=== PATIENT | female | born 1940 | race Caucasian/White ===

== ENCOUNTER 2018-08-10 07:35 | Emergency (ER) | payer OTHER ==
[2018-08-10] MEDS ORDERED: TRAMADOL HCL 50 MG TAB ONE (08:20)
--- NOTE | 2018-08-10 08:51 | RAD REPORT ---
EXAM DESCRIPTION: RAD - Elbow Right 3 View - 08/10/2018 8:42 am CLINICAL HISTORY: fall;Pain COMPARISON: No comparisons FINDINGS: Acute fracture of the radial head and neck is seen. Anterior and posterior fat pad elevati on is present. No dislocation is evident.
[2018-08-10] MEDS ORDERED: MORPHINE 4 MG/ML SYR ONE (08:58)
[2018-08-10] MEDS ORDERED: ONDANSETRON 4 MG (ODT) TAB ONE (08:59)
--- NOTE | 2018-08-10 09:12 | ER ---
Nurse's Notes [facility] Name: Estelle Zeng Age: 78 yrs Sex: Female : 1940 Arrival Date: 08/10/2018 Time: 07:36 Bed 7 Private MD: Diagnosis: Right Radial head and neck fracture Presentation: 08/10 07:44 Presenting complaint: EMS states: Pt tripped and fell on right elbow, denies hitting jl7 head, denies LOC. Care prior to arrival: Splint applied. Mechanism of Injury: Fall from standing position. Trauma event details: Injury occurred in the [facility], Injury occurred: at home. Injury occurred: August 10, 2018. 07:44 Acuity: CRISTINE 4 jl7 07:44 Method Of Arrival: EMS: [facility] jl7 07:52 Transition of care: patient was not received from another setting of care. Onset of jl7 symptoms was August 10, 2018. Risk Assessment: Do you want to hurt yourself or someone else? Patient reports no desire to harm self or others. Initial Sepsis Screen: Does the patient meet any 2 criteria? No. Patient's initial sepsis screen is negative. Does the patient have a suspected source of infection? No. Patient's initial sepsis screen is negative. Triage Assessment: 07:59 General: Appears in no apparent distress. uncomfortable, Behavior is calm, cooperative, jl7 appropriate for age. Pain: Complains of pain in right elbow Pain currently is 8 out of 10 on a pain scale. EENT: No signs and/or symptoms were reported regarding the EENT system. Neuro: Level of Consciousness is awake, alert, obeys commands, Oriented to person, place, time, situation. Cardiovascular: Heart tones present Patient's skin is warm and dry. Respiratory: Airway is patent Respiratory effort is even, unlabored, Respiratory pattern is regular, symmetrical, Breath sounds are clear bilaterally. Derm: Skin is pink, warm \T\ dry. Musculoskeletal: Range of motion: limited in right elbow. Trauma Activation: Not Applicable Physician: ED Physician; Name: ; Notified At: ; Arrived At: Physician: General Surgeon; Name: ; Notified At: ; Arrived At: Physician: Radiology; Name: ; Notified At: ; Arrived At: Physician: Respiratory; Name: ; Notified At: ; Arrived At: Physician: Lab; Name: ; Notified At: ; Arrived At: Historical: - Allergies: 07:59 Codeine; jl7 07:59 Hydrocodone-Acetaminophen; 7 07:59 PROPOXYPHENE; jl7 07:59 Meperidine; 7 07:59 Demerol; jl7 07:59 Darvon; jl7 - Home Meds: 07:59 Simvastatin Oral [Active]; anastrozole 1 mg oral tab 1 tab once daily [Active]; jl7 - PMHx: 07:59 Breast Cancer; Hyperlipidemia; jl7 - PSHx: 07:59 Mastectomy, Left; Mastectomy, Right; jl7 - Immunization history: Last tetanus immunization: unknown. - Social history:: Smoking status: unknown. - Ebola Screening: : No symptoms or risks identified at this time. Screenin:44 Abuse screen: Denies threats or abuse. Denies injuries from another. Tuberculosis jl7 screening: No symptoms or risk factors identified. Primary Survey: :44 NO uncontrolled hemorrhage observed. A: Airway: patent. Breathing/Chest: Respiratory jl7 pattern: regular, Respiratory effort: spontaneous, unlabored, Breath sounds: clear, bilaterally. Chest inspection: symmetrical rise and fall of the chest. Circulation: Heart tones present. Pulses: palpable right radial artery and left radial artery. Skin color: pink, Skin temperature: warm. Disability Alert. Exposure/Environment: There is no evidence of uncontrolled external bleeding. Obvious injury(ies) are noted at this time: right elbow noted with minor swelling and bruising A warming method has been applied: A warm blanket has been provided to the patient. 08:00 Reassessment Breathing/Chest Respiratory pattern Regular Respiratory effort Spontaneous jl7 Unlabored Chest inspection Symmetrical. Assessment: 08:00 General: See triage assessment. jl7 09:05 Reassessment: pt assisted to bedside commode, placed back in bed, family at bedside, pt iw crying, c/o increasing pain, ELYSIA Valencia notified, new orders given, pt medicated with morphine IM. 09:15 Reassessment: Pt will be discharged once splint is applied. jl7 Vital Signs: 07:44 BP 206 / 117; Pulse 75; Resp 16 S; Temp 98.6(O); Pulse Ox 100% on R/A; Weight 83.46 kg; jl7 Pain 8/10; 08:30 BP 203 / 102; Pulse 80; Resp 16 S; Pulse Ox 100% on R/A; jl7 09:30 BP 200 / 84; Pulse 78; Resp 16 S; Pulse Ox 100% on R/A; jl7 [place] Coma Score: 07:44 Eye Response: spontaneous(4). Verbal Response: oriented(5). Motor Response: obeys jl7 commands(6). Total: 15. Trauma Score (Adult): 07:44 Eye Response: spontaneous(1); Verbal Response: oriented(1); Motor Response: obeys jl7 commands(2); Systolic BP: > 89 mm Hg(4); Respiratory Rate: 10 to 29 per min(4); [place] Score: 15; Trauma Score: 12 ED Course: 07:36 Patient arrived in ED. hj 07:36 Erik Lopes PA is PHCP. jr8 07:36 Av Chaudhary MD is Attending Physician. jr8 07:44 Richard Foster, DORA is Primary Nurse. jl7 07:44 Patient has correct armband on for positive identification. Bed in low position. Call jl7 light in reach. Side rails up X2. 07:44 Patient maintains SpO2 saturation greater than 95% on room air. Thermoregulation: warm jl7 blanket given to patient. 07:47 Triage completed. jl7 08:03 Arm band placed on right wrist. jl7 08:39 X-ray completed. Portable x-ray completed in exam room. Patient tolerated procedure jb2 well. 08:43 XRAY Elbow RIGHT 3 view In Process Unspecified. EDMS 09:10 Emre Jordan MD is Referral Physician. jr8 09:42 No provider procedures requiring assistance completed. Patient did not have IV access jl7 during this emergency room visit. 09:50 Orthoglass splint: posterior long arm splint applied to the right arm. Volar splint kj1 applied on radial pulse present and within normal limits before and after application of splint. capillary refill was two seconds before and after application. Administered Medications: 08:11 Drug: traMADol 50 mg Route: PO; jl7 09:00 Follow up: Response: No adverse reaction; Pain is unchanged, physician notified jl7 08:53 Drug: Zofran 4 mg Route: PO; iw 09:39 Follow up: Response: No adverse reaction jl7 09:05 Drug: morphine 4 mg Route: IM; Site: left deltoid; iw 09:39 Follow up: Response: No adverse reaction; Pain is decreased jl7 Intake: 09:30 PO: 0ml; Total: 0ml. jl7 Output: 09:30 Urine: 0ml; Total: 0ml. jl7 Outcome: 09:10 Discharge ordered by . jrLonnie 09:42 Discharged to home ambulatory, via wheelchair. jl7 09:42 Condition: stable 09:42 Discharge instructions given to patient, family, Instructed on discharge instructions, follow up and referral plans. medication usage, Demonstrated understanding of instructions, follow-up care, medications, Prescriptions given X 2. 09:43 Patient left the ED. Signatures: Dispatcher [employer] EDMS Matt Haskins jb2 Maria Teresa Perry, DORA JOHN iw Erik Lopes PA PA jr8 Alex Fischer RN RN hj Leal, Jahala, RN RN jl7 Smiley Gregg kj1
--- NOTE | 2018-08-10 09:12 | EDPHYS ---
Physician Documentation [facility] Name: Estelle Zeng Age: 78 yrs Sex: Female : 1940 Arrival Date: 08/10/2018 Time: 07:36 Bed 7 Private MD: ED Physician Av Chaudhary HPI: 08/10 08:34 This 78 yrs old Female presents to ER via EMS with complaints of Fall Injury. jr8 08:34 Details of fall: The patient fell from an upright position, while standing. Onset: The jr8 symptoms/episode began/occurred acutely, this morning. Associated injuries: The patient sustained right elbow, ecchymosis, painful injury, swelling. Severity of symptoms: At their worst the symptoms were moderate, in the emergency department the symptoms are unchanged. The patient has not experienced similar symptoms in the past. The patient has not recently seen a physician. Patient stated that she accidently tripped on husbands gym bag. Fell to ground and hit right elbow. Denies hitting head or neck. Denies LOC. No other trauma complaints at this time . Historical: - Allergies: 07:59 Codeine; jl7 07:59 Hydrocodone-Acetaminophen; jl7 07:59 PROPOXYPHENE; jl7 07:59 Meperidine; jl7 07:59 Demerol; jl7 07:59 Darvon; jl7 - Home Meds: 07:59 Simvastatin Oral [Active]; anastrozole 1 mg oral tab 1 tab once daily [Active]; jl7 - PMHx: 07:59 Breast Cancer; Hyperlipidemia; jl7 - PSHx: 07:59 Mastectomy, Left; Mastectomy, Right; jl7 - Immunization history: Last tetanus immunization: unknown. - Social history:: Smoking status: unknown. - Ebola Screening: : No symptoms or risks identified at this time. ROS: 08:34 Eyes: Negative for injury, pain, redness, and discharge, ENT: Negative for injury, jr8 pain, and discharge, Neck: Negative for injury, pain, and swelling, Cardiovascular: Negative for chest pain, palpitations, and edema, Respiratory: Negative for shortness of breath, cough, wheezing, and pleuritic chest pain, Abdomen/GI: Negative for abdominal pain, nausea, vomiting, diarrhea, and constipation, Back: Negative for injury and pain, Skin: Negative for injury, rash, and discoloration, Neuro: Negative for headache, weakness, numbness, tingling, and seizure. 08:34 MS/extremity: Positive for ecchymosis, pain, swelling, tenderness, of the right elbow. Exam: 08:34 Eyes: Pupils equal round and reactive to light, extra-ocular motions intact. Lids and jr8 lashes normal. Conjunctiva and sclera are non-icteric and not injected. Cornea within normal limits. Periorbital areas with no swelling, redness, or edema. ENT: Nares patent. No nasal discharge, no septal abnormalities noted. Tympanic membranes are normal and external auditory canals are clear. Oropharynx with no redness, swelling, or masses, exudates, or evidence of obstruction, uvula midline. Mucous membranes moist. Neck: Trachea midline, no thyromegaly or masses palpated, and no cervical lymphadenopathy. Supple, full range of motion without nuchal rigidity, or vertebral point tenderness. No Meningismus. Cardiovascular: Regular rate and rhythm with a normal S1 and S2. No gallops, murmurs, or rubs. Normal PMI, no JVD. No pulse deficits. Respiratory: Lungs have equal breath sounds bilaterally, clear to auscultation and percussion. No rales, rhonchi or wheezes noted. No increased work of breathing, no retractions or nasal flaring. Abdomen/GI: Soft, non-tender, with normal bowel sounds. No distension or tympany. No guarding or rebound. No evidence of tenderness throughout. Back: No spinal tenderness. No costovertebral tenderness. Full range of motion. Skin: Warm, dry with normal turgor. Normal color with no rashes, no lesions, and no evidence of cellulitis. Neuro: Awake and alert, GCS 15, oriented to person, place, time, and situation. Cranial nerves II-XII grossly intact. Motor strength 5/5 in all extremities. Sensory grossly intact. Cerebellar exam normal. Normal gait. 08:34 Musculoskeletal/extremity: Extremities: grossly normal except: noted in the right elbow: Patient has mild swelling, bruising, and tenderness to lateral malleolus. Decreased ROM due to pain. No obvious deformity. Normal sensation with 2+ pulses present to right wrist. Cap refill < 2 seconds. Rest of extremities unremarkable . Vital Signs: 07:44 BP 206 / 117; Pulse 75; Resp 16 S; Temp 98.6(O); Pulse Ox 100% on R/A; Weight 83.46 kg; jl7 Pain 8/10; 08:30 BP 203 / 102; Pulse 80; Resp 16 S; Pulse Ox 100% on R/A; jl7 09:30 BP 200 / 84; Pulse 78; Resp 16 S; Pulse Ox 100% on R/A; jl7 [place] Coma Score: 07:44 Eye Response: spontaneous(4). Verbal Response: oriented(5). Motor Response: obeys jl7 commands(6). Total: 15. Trauma Score (Adult): 07:44 Eye Response: spontaneous(1); Verbal Response: oriented(1); Motor Response: obeys jl7 commands(2); Systolic BP: > 89 mm Hg(4); Respiratory Rate: 10 to 29 per min(4); [place] Score: 15; Trauma Score: 12 Procedures: 08:47 Splinting: Splint applied to right elbow using Orthoglass splint, applied by tech. jr8 nurse. Examined by me, post splint application: neurovascular intact, 2+ distal pulses palpable, brisk capillary refill noted, Patient tolerated well. MDM: 07:43 Patient medically screened. jr8 08:47 Data reviewed: vital signs, nurses notes, radiologic studies, plain films. Data jr8 interpreted: Pulse oximetry: on room air is 100 %. Interpretation: normal. Test interpretation: by ED physician or midlevel provider: plain radiologic studies, Radial Head fracture right elbow . Counseling: I had a detailed discussion with the patient and/or guardian regarding: the historical points, exam findings, and any diagnostic results supporting the discharge/admit diagnosis, radiology results, the need for outpatient follow up, a orthopedic surgeon, to return to the emergency department if symptoms worsen or persist or if there are any questions or concerns that arise at home. 08/10 07:43 Order name: XRAY Elbow RIGHT 3 view; Complete Time: 08:59 jr8 08/10 08:47 Order name: Posterior Elbow Splint; Complete Time: 09:39 jr8 Administered Medications: 08:11 Drug: traMADol 50 mg Route: PO; jl7 09:00 Follow up: Response: No adverse reaction; Pain is unchanged, physician notified jl7 08:53 Drug: Zofran 4 mg Route: PO; iw 09:39 Follow up: Response: No adverse reaction jl7 09:05 Drug: morphine 4 mg Route: IM; Site: left deltoid; 09:39 Follow up: Response: No adverse reaction; Pain is decreased jl7 Disposition: 11:30 Co-signature as Attending Physician, Av Chaudhary MD. rn Disposition: 08/10/18 09:10 Discharged to Home. Impression: Right Radial head and neck fracture . - Condition is Stable. - Discharge Instructions: Elbow Fracture Treated With ORIF. - Prescriptions for Tramadol 50 mg Oral Tablet - take 1 tablet by ORAL route every 8 hours as needed; 20 tablet. Zofran 4 mg Oral Tablet - take 1 tablet by ORAL route every 12 hours As needed; 20 tablet. - Medication Reconciliation Form, Thank You Letter, Antibiotic Education, Prescription Opioid Use form. - Follow up: Emre Jordan MD; When: 2 - 3 days; Reason: Recheck today's complaints, Continuance of care, Re-evaluation by your physician. - Problem is new. - Symptoms have improved. Signatures: Dispatcher [employer] EDMaria Teresa Mendoza RN RN iw Nieto, Roman, MD MD rn Roszak, Josh, PA PA jr8 Richard Foster RN RN jl7 Corrections: (The following items were deleted from the chart) 09:43 09:10 08/10/2018 09:10 Discharged to Home. Impression: Right Radial head and neck iw fracture . Condition is Stable. Forms are Medication Reconciliation Form, Thank You Letter, Antibiotic Education, Prescription Opioid Use. Follow up: Emre Jordan; When: 2 - 3 days; Reason: Recheck today's complaints, Continuance of care, Re-evaluation by your physician. Problem is new. Symptoms have improved. jr8
== END 2018-08-10 09:43 | disposition home or self-care (01) ==
LOC: ER 07:35
PROC: 2W38X1Z Immobilization of Right Upper Extremity using Splint (ICD-10-PCS; principal; 2018-08-10)
DX: S52.122A Displaced fracture of head of left radius, initial encounter for closed fracture (principal); S52.131A Displaced fracture of neck of right radius, initial encounter for closed fracture; W01.0XXA Fall on same level from slipping, tripping and stumbling without subsequent striking against object, initial encounter; E78.5 Hyperlipidemia, unspecified; C50.919 Malignant neoplasm of unspecified site of unspecified female breast; Z88.5 Allergy status to narcotic agent
CPT/HCPCS: 96372; 99284

== ENCOUNTER 2020-01-05 06:22 | Day surgery (SDC) | payer OTHER ==
--- OUTSIDE RECORDS SUMMARY | 2020-01-05 06:35 | XMS REPORT | Continuity of Care Document ---
:1940 Author Organization [facility] t Address [address] [place] [address] Dr. Feng [address] [place] [id number] Care Team Providers Name Role Phone Unavailable Unavailable Unavailable Problems This patient has no known problems. Allergies, Adverse Reactions, Alerts This patient has no known allergies or adverse reactions. Medications This patient has no known medications. Procedures This patient has no known procedures. Results This patient has no known results.
[2020-01-05] MEDS ORDERED: Ringers Lactate 1,000 ML IV ONE (06:59)
[2020-01-05] MEDS ORDERED: NA CHLORIDE 0.9% 1,000 ML ONE (07:09)
[2020-01-05] MEDS ORDERED: MIDAZOLAM HCL 2 MG/2 ML INJ ONE (07:14)
[2020-01-05] MEDS ORDERED: propofoL 200 MG/20 ML VIAL IV ONE ×2 (07:14→08:16)
[2020-01-05] MEDS ORDERED: FENTANYL CITR 100 MCG/2 ML ONE (07:14)
[2020-01-05] MEDS ORDERED: LIDOCAINE 2% MPF 5 ML VIAL ONE (07:15)
[2020-01-05] MEDS: LIDOCAINE 1% W/EPI 1:100,000 MDV 20 ML VIAL ONE ×2 (07:28→07:51)
[2020-01-05 08:42] VITALS: TEMP 98; O2SAT 100
[2020-01-05 08:43] VITALS: BP 130/64
--- NOTE | 2020-01-05 10:35 | OP ---
Date of Procedure: 01/05/2020 Surgeon: Carline Estrada MD Preoperative Diagnoses: History of breast cancer, thickened endometrium, the patient is on anastrozo le. Postoperative Diagnoses: History of breast cancer, thickened endometrium, the patient is on anastroz ole, polypoid endometrium, and cervical polyp. Procedures Performed: 1.Cervical polypectomy. 2.Hysteroscopy, dilation and curettage. Anesthesia: MAC plus paracervical block. Specimens: Endometrial curettings, cervical polyp. Complications: None. Drains: None. Condition: Stable. Findings: Uterine cavity empty. There were small intrauterine adhesions. Tiny polypoid endometrium appeared very atrophic. Both tubal ostia were well visualized as one spot near the left cornual end in the posterior wall that appeared to be slightly vascular and polypoid, but this was an extremely small lesion. She had a significant posterior wall defect, anterior wall -2, -3, -6. Genital hiatus 4-5 cm. Thick ness of the perineal body moderate. Length of the vaginal canal 7 cm and -2, 0, and -6. The patient had significant site-specific midline posterior wall defect that was making the genital h iatus larger than normal. Description Of Procedure: After informed consent was verified, the patient was taken back to OR, pankaj shelia in supine fashion on the operating table. MAC given. She was placed in a dorsal lithotomy posit ion. Speculum placed to expose the cervix. Prep x3 with Betadine was done. Anterior lip injected w ith 1% lidocaine mixed with 1:100,000 epinephrine, 10 cc here, and 4 and 8 o'clock positions 5 cc eac h. Diagnostic hysteroscopy was performed after the polyps of the cervix were removed. The findings are as dictated above. Slightly polypoid endometrium after the adhesions were taken down with the ti p of the scope. Slightly vascular area which is very few millimeters difficult to even sample. All the scope was removed, curettings were performed after dilating the cervix to 14-Kiswahili without any p roblems. The curettings were scant. The cervical polyps were placed in a separate specimen cup and the endometrial curettings in different cup. Hysteroscopy was performed at the end and the tiny poly poid lesions were removed, either with the process of hysteroscopy or with the curetting, but they we re not found in the hysteroscopic fluid, it was very difficult to remove these. The patient was recovered from anesthesia. Instrument, needle, and sponge counts were done and were correct at the end of the case. She was recovered and taken to PACU in a stable condition. She has a 1-week followup with me. CHLOE Voice ID: [id number] Report ID: [id number]
== END 2020-01-05 09:01 | disposition home or self-care (01) ==
LOC: OR 06:22
PROVIDERS: ATTEND Obstetrics & Gynecology
PROC: 0UB97ZX Excision of Uterus, Via Natural or Artificial Opening, Diagnostic (ICD-10-PCS; 2020-01-05)
PROC: 0UDB7ZX Extraction of Endometrium, Via Natural or Artificial Opening, Diagnostic (ICD-10-PCS; 2020-01-05)
PROC: 0UJD8ZZ Inspection of Uterus and Cervix, Via Natural or Artificial Opening Endoscopic (ICD-10-PCS; 2020-01-05)
PROC: 0UBC7ZX Excision of Cervix, Via Natural or Artificial Opening, Diagnostic (ICD-10-PCS; principal; 2020-01-05 07:30)
DX: N84.0 Polyp of corpus uteri (principal); N84.1 Polyp of cervix uteri; Z79.811 Long term (current) use of aromatase inhibitors; I10 Essential (primary) hypertension; Z20.828 Contact with and (suspected) exposure to other viral communicable diseases; Z79.899 Other long term (current) drug therapy; Z85.3 Personal history of malignant neoplasm of breast
CPT/HCPCS: 88305; 58558; 57500; U0002; J2704; J3010; J7120; J7030; J2250

== ENCOUNTER 2022-02-24 09:40 | Emergency (ER) | payer OTHER ==
--- OUTSIDE RECORDS SUMMARY | 2022-02-24 09:47 | XMS REPORT | Continuity of Care Document ---
:1940 Author Organization [facility] t Address [address] [place] [address] Care Team Providers Name Role Phone JAGDISH WALTER Primary Care Physician Unavailable Vaccine, [facility] Attending Clinician Unavailable Bismark Kramer DO Attending Clinician BISMARK KRAMER Attending Clinician Unavailable Nurse, Leonel Pob Immunization Attending Clinician Unavailable EUGENIO HELLER Attending Clinician Unavailable Payers Payer Name Policy Type Policy Number Effective Date Expiration Date S patrick [employer] MEDICARE ADV [id number] 2018 00:00:00 Problems Condition Condition Condition Status Onset Resolution Last Treating Co mments Source Name Details Category Date Date Treatment Clinician Date WALDEMAR WALDEMAR Diagnosis Active 2011-052012-04-28 [facility] oria Active 06-24 16:10:00 l 04/23/2012 00:00: Adrián nicolas 00 [facility] WALDEMAR WALDEMAR Diagnosis Active 2011-052012-06-29 [facility] oria -327.23 / -327.06-02 14:57:00 l [id number] 00:00: Jack Active 00 04/02/2012 [facility] MORBID MORBID Diagnosis Active 2011-052012-02-24 [place] morideepti OBESITY OBESITY 0- 10:34:00 l Active 00:00: Jack 02/10/2012 00 [facility] 327.23 327.23 Diagnosis Active 2011-12-12 M emoria Active 11-26 19:28:00 l 11/27/2011 00:00: Adrián nicolas 00 [facility] Acute Acute Problem Active 2012-03-02 Aniaor ia bronchitis bronchitis 03:03:45 l Active Jack Problem 03/02/2012 [facility] Bilateral Bilateral Problem Active 2012-03-02 Memoria cataracts cataracts 03:03:45 l Active [place] Problem 03/02/2012 [facility] Breast Breast Problem Active 2012-03-02 Wilbert olivier cancer cancer 03:03:45 l Active [place] Problem 03/02/2012 [facility] Diabetes Diabetes Problem Active 2012-03-02 Memoria mellitus mellitus 03:03:45 l Active [place] Problem 03/02/2012 [facility] HTN - HTN - Problem Active 2012-03-02 Wilbert olivier Hypertensi Hypertensi 03:03:45 l on on Active Jack Problem 03/02/2012 [facility] Hyperlipid Hyperlipi Problem Active 2012-03-02 Memoria emia demia 03:03:45 l Active [place] Problem 03/02/2012 [facility] Morbid Morbid Problem Active 2012-03-02 Wilbert olivier obesity obesity 03:03:45 l Active Jack Problem 03/02/2012 [facility] Sleep Sleep Problem Active 2012-03-02 Memor ia apnea apnea 03:03:45 l Active Jack Problem 03/02/2012 [facility] OBSTRUCTIV OBSTRUCTI Diagnosis Active 2012-06-29 Memoria E SLEEP VE SLEEP 14:57:00 l APNEA APNEA [place] Active [facility] ADMINISTRT Diagnosis Active 2012-02-24 Memoria VE ENCOUNT ADMINISTRT 10:34:00 l NOS VE ENCOUNT Adrián n NOS Active [facility] Allergies, Adverse Reactions, Alerts Allergy Allergy Status Severity Reaction(s) Onset Inactive Treating Comm ents Source Name Type Date Date Clinician PROPOXYP DRUG Active N/V Univers HENE HCL INGREDI 4-10 ity of 00:00: 00 Medical Branch MEPERIDI DRUG Active N/V Univers NE HCL INGREDI 4-10 ity of 00:00: 00 Medical Branch HYDROCOD DRUG Active Other-Cmnt Univ ers ONE INGREDI 4-10 ity of 00:00: 00 Medical [facility] Propoxyp Propensi Active Nausea Univer s hene Hcl ty to and/or 4-10 ity of adverse Vomiting 00:00: [place] reaction 00 Medical s [facility] Meperidi Propensi Active Nausea Univer s ne Hcl ty to and/or 4-10 ity of adverse Vomiting 00:00: [place] reaction [facility] Hydrocod Propensi Active Other - See Fast HR Univers one ty to comments 4-10 ity of adverse 00:00: [place] reaction [facility] propoxyp propoxyp Active Memori a hene hene l Jack Darvon Darvon Active Memoria liliane Santiago Demerol Demerol Active Memoria HCl HCl l Jack meperidi meperidi Active Memori a ne ne l Jack Social History Social Habit Start Date Stop Date Quantity Comments Source Tobacco use and 2018-08-11 2018-08-11 Smokeless tobacco Un iversity of exposure 00:00:00 00:00:00 non-user [facility] Sex Assigned At [birth year] Universit y of 00:00:00 00:00:00 [facility] Smoking Status Start Date Stop Date Source Never smoked tobacco [facility] Medications Ordered Filled Start Stop Current Ordering Indication Dosage Frequency Signature Comments Components Source Medication Medication Date Date Medication? Clinician (SIG) Name Name SIMVASTATIN Yes Take by Uni vers ORAL 4-10 mouth. ity of 15:11: [address] SIMVASTATIN Yes Take by Uni vers ORAL 4-10 mouth. ity of 15:11: [address] SIMVASTATIN Yes Take by Uni vers ORAL 4-10 mouth. ity of 15:11: [address] Lortab 500 2011-05 Yes Isiah 15 ml, PO, Memoria mg-7.5 0-25 Arturo Q4H, PRN, l mg/15 mL 14:04: 200 mLAdrián n oral elixir 38 for pain, Substituti on Allowed, Maintenanc e, ELIX ketorolac 2011-05 No Isiah 30 mg, 1 Me moria 30 mg/mL 0-24 Arturo mL, Route: l injectable 17:00: IV, Drug Her castillo solution 00 form: INJ, Q6H, Start date: 02/25/12 12:00:00, Duration: 4 day, Stop date: 02/29/12 6:00:00 Lovenox 2011-05 No Isiah 40 mg, 0.4 Me moria 0-24 Arturo mL, Route: l 15:00: SUB-Q, Jack 00 Drug form: INJ, [id number], Start date: 02/25/12 10:00:00, Duration: 30 day, Stop date: 03/25/12 22:00:00 naloxone 2011-05 No Isiah 0.2 mg, Wilbert olivier 0-24 Arturo 0.5 mL, l 14:53: Route: Jack 00 IVP, Drug form: INJ, Q5Min, PRN Narcotic Reversal, Start date: 02/25/12 9:53:00, Stop date: 03/26/12 8:52:00 morphine 2011-05 No Isiah IV, Start Me moria Sulfate 30 0-24 Arturo date: l mg 14:52: 02/25/12 [place] 00 9:52:00, 30 ml, 139.545 acetaminoph 2011-05 No Isiah 15 mL, Me moria en-hydrocod 0-24 Arturo Route: PO, l one 14:46: Drug Form: ELIX, Q4H, PRN Pain, Start date: 02/25/12 9:46:00, Duration: 30 day, Stop date: 03/26/12 9:45:00 Tylenol 2011-05 No Isiah 650 mg, Memor ia 0-24 Arturo 20.3 mL, l 14:46: Route: PO, Jack 00 Drug form: LIQ, Q4H, PRN Pain Score 1-3, Start date: 02/25/12 9:46:00, Duration: 30 day, Stop date: 03/26/12 9:45:00 heparin 2011-05 No Isiah 5,000 Memoria 0-24 Arturo unit, 1 l 03:00: mL, Route: [place] 00 SUB-Q, Drug form: INJ, ONCE, Start date: 02/24/12 22:00:00, Stop date: 02/24/12 22:00:00 Pepcid 2011-05 No Isiah 20 mg, 2 Memor ia 0-24 Arturo mL, Route: l 02:00: IVP, Drug form: INJ, Q12H, Start date: 02/24/12 21:00:00, Duration: 30 day, Stop date: 03/25/12 9:00:00 Reglan 2011-05 No Isiah 10 mg, 2 Memor ia 0-23 Arturo mL, Route: l 23:00: IV, Drug form: INJ, Q8H, Start date: 02/24/12 18:00:00, Duration: 30 day, Stop date: 03/25/12 10:00:00 cefazolin 2011-05 No Isiah 2 gm, 100 M emoria 0-23 Arturo mL, Route: l 21:00: IVPB, Drug form: INJ, Q8H, Start date: 02/24/12 16:00:00, Duration: 3 doses or times, Stop date: 02/25/12 8:00:00 Pepcid 2011-05 No Isiah 20 mg, Memoria 0-23 Arturo Route: IV, l 19:00: ONCE, Dosing Weight 139.545, kg, Start date: 02/24/12 14:00:00, Stop date: 02/24/12 14:00:00 insulin 2011-05 Sienna Joyce 15 unit, Wilbert olivier regular 0-23 Arturo 0.15 mL, l human 17:52: Route: Jack recombinant 00 SUB-Q, 100 Drug form: units/mL SOLN, injectable Sliding solution Scale, PRN Blood Glucose Results, Start date: 02/24/12 12:52:00, Duration: 30 day, Stop date: 03/25/12 11:51:00 insulin 2011-05 Sienna Joyce 10 unit, Wilbert oliveir regular 0-23 Arturo 0.1 mL, l human 17:51: Route: Jack recombinant 00 SUB-Q, 100 Drug form: units/mL SOLN, injectable Sliding solution Scale, PRN Blood Glucose Results, Start date: 02/24/12 12:51:00, Duration: 30 day, Stop date: 03/25/12 11:50:00 Tylenol 2011-05 No Isiah 650 mg, 1 Mem oria 0-23 Arturo supp, l 17:50: Route: FL, Drug form: SUPP, Q4H, PRN Temperatur e >100.5, Start date: 02/24/12 12:50:00, Duration: 30 day, Stop date: 03/25/12 12:49:00 Vasotec 2011-05 No Isiah 1.25 mg, 1 Me moria 0-23 Arturo mL, Route: l 17:49: IV, Drug form: INJ, Q6H, PRN Elevated BP, Start date: 02/24/12 12:49:00, Duration: 30 day, Stop date: 03/25/12 12:48:00 Phenergan 2011-05 No Isiah 25 mg, 1 Me moria 0-23 Arturo mL, Route: l 17:49: IM, Drug form: INJ, Q4H, PRN Nausea, Start date: 02/24/12 12:49:00, Duration: 30 day, Stop date: 03/25/12 12:48:00 Lactated 2011-05 No Isiah 1,000 mL, Me moria Ringers 0-23 Arturo Rate: 80 l Injection 17:48: ml/hr, Adrián n IV 1,000 mL 00 Infuse over: 12.5 hr, Route: IV, kg, Total Volume: 1,000, Start date: 02/24/12 12:48:00, Stop date: 03/25/12 12:47:00 Zofran 2011-05 No Isiah 4 mg, 2 Memori a 0-23 Arturo mL, Route: l 15:24: IVP, Drug form: INJ, Q8H, PRN Nausea & Vomiting, Start date: 02/24/12 10:24:00, Duration: 30 day, Stop date: 03/25/12 10:23:00 Benadryl 2011-05 No Isiah 12.5 mg, Mem oria 0-23 Arturo 0.25 mL, l 15:24: Route: IVP, Drug form: INJ, Q6H, PRN Itching, Start date: 02/24/12 10:24:00, Duration: 30 day, Stop date: 03/25/12 10:23:00 naloxone 2011-05 No Isiah 0.2 mg, Wilbert olivier 0-23 Arturo 0.5 mL, l 15:23: Route: IVP, Drug form: INJ, Q5Min, PRN Narcotic Reversal, Start date: 02/24/12 10:23:00, Duration: 30 day, Stop date: 03/25/12 9:22:00 morphine 2011-05 No Isiah IV, Start Me moria Sulfate 30 0-23 Arturo date: l mg 15:23: 02/24/12 Jack 00 10:23:00, Duration: 30, 30 ml, 139.545 ketorolac 2011-05 No Isiah 15 mg, 0.5 Memoria 30 mg/mL 0-23 Arturo mL, Route: l injectable 15:19: IV, Drug Her castillo solution 00 form: INJ, Q8H, PRN Breakthrou gh Pain, Start date: 02/24/12 10:19:00, Duration: 4 day, Stop date: 02/28/12 10:18:00 Peridex 2011-05 No Kevon 15 mL, Memori a 0.12% 0-23 Jens [place] Route: l topical 12:34: S&SPIT, Jack liquid 00 ONCE, Start date: 02/24/12 7:34:00, Stop date: 02/24/12 7:34:00 naloxone 2011-05 No Noel 0.04 mg, Mem oria 0-23 Chuan 0.1 mL, l 12:21: Route: Jack 00 IVP, Drug form: INJ, Q2MIN, Dosing Weight 139.545, kg, PRN Narcotic Reversal, Start date: 02/24/12 7:21:00, Duration: 8 doses or times, Stop date: Limited # of times ondansetron 2011-05 No Noel 4 mg, 2 M emoria 0-23 Chuan mL, Route: l 12:21: IVP, Drug [place] 00 form: INJ, ONCE, Dosing Weight 139.545, kg, PRN Nausea & Vomiting, Start date: 02/24/12 7:21:00 flumazenil 2011-05 No Noel 0.2 mg, 2 Memoria 0-23 Chuan mL, Route: l 12:21: IVP, Drug [place] 00 form: INJ, PRN, Dosing Weight 139.545, kg, PRN Benzodiaze pine Reversal, Initial dose, Start date: 02/24/12 7:21:00, Duration: 30 day, Stop date: 03/25/12 6:20:00 1/ NS 2011-05 No Kevon 1,000 mL, Wilbert olivier 1,000 mL 0-23 Jens [place] Rate: 40 l 11:25: ml/hr, Jack 00 Infuse over: 25 hr, Route: IV, kg, Total Volume: 1,000, Start date: 10/23/12 6:25:00, Duration: 30 day, Stop date: 03/25/12 6:24:00 cefazolin 2011-05 No Isiah 2 gm, 100 M emoria 0-23 Arturo mL, Route: l 05:00: IVPB, Drug Jack 00 form: INJ, ONCALL, Start date: 02/24/12 0:00:00, Duration: 1 doses or times Januvia 100 2011-05 No 100 mg, 1 M emoria mg oral 0-09 tab, PO, l tablet 16:41: Daily, 30 Adrián n 54 tab, Substituti on Allowed, TAB glimepiride 2011-05 No 1 mg, 1 Mem oria 1 mg oral 0-09 tab, PO, l tablet 16:41: BID, 30 Jack 27 tab, Substituti on Allowed, TAB Centrum 2011-05 Yes 1 tab, PO, Wilbert olivier Silver oral 0-09 Daily, 30 l tablet 16:41: tab, Jack 11 Substituti on Allowed, Maintenanc e, TAB MetroGel 1% 2011-05 Yes 1 appl, Mem oria topical gel 0-09 TOP, l 16:40: Daily, 45 Jack 23 gm, Substituti on Allowed, GEL Aspirin Low 2011-05 No 81 mg, 1 Me moria Dose 81 mg 0-09 tab, PO, l oral tablet 16:39: Daily, Leatha mcwilliams 52 Substituti on Allowed Metoprolol 2011-05 Yes 100 mg, 1 Me moria Tartrate 0-09 tab, PO, l 100 mg oral 16:39: BID, Adrián n tablet 39 Substituti on Allowed Actonel 150 2011-05 No 150 mg, 1 M emoria mg oral 0-09 tab, PO, l tablet 16:39: qMonth, 1 Adrián n 22 tab, Substituti on Allowed, TAB Hyzaar 100 2011-05 Yes 1 tab, PO, M emoria mg-25 mg 0-09 Daily, 30 l oral tablet 16:39: tab, Adrián n 06 Substituti on Allowed, Maintenanc e, TAB Zocor 40 mg 2011-05 No 40 mg, 1 Me moria oral tablet 0-09 tab, PO, l 16:38: Bedtime, Jack 53 30 tab, Substituti on Allowed, Maintenanc e Norvasc 2.5 2011-05 Yes 2.5 mg, 1 M emoria mg oral 0-09 tab, PO, l tablet 16:38: Bedtime, Jack 27 30 tab, Substituti on Allowed, TAB Immunizations Ordered Filled Immunization Date Status Comments Sourc e Immunization Name Name SARS-COV-2 COVID-19 2022-02-13 Completed Unive rsity of [facility] 00:00:00 [place] [facility] VACCINE 12 YRS+, Branch BIVALENT 0.3ML, IM, (PFIZER BELTRÁN TOP BOOSTER) SARS-COV-2 COVID-19 2021-08-19 Completed Unive rsity of PFIZER SHREYA-SUCROSE 00:00:00 [place] [facility] VACCINE (BELTRÁN TOP) Branch SARS-COV-2 COVID-19 2021-08-19 Completed Unive rsity of PFIZER SHREYA-SUCROSE 00:00:00 [place] [facility] VACCINE (BELTRÁN TOP) Branch SARS-COV-2 COVID-19 2021-01-24 Completed Unive rsity of PFIZER VACCINE 00:00:00 [facility] Branch SARS-COV-2 COVID-19 2021-01-24 Completed Unive rsity of PFIZER VACCINE 00:00:00 [facility] Branch SARS-COV-2 COVID-19 2021-01-24 Completed Unive rsity of PFIZER VACCINE 00:00:00 [facility] Branch SARS-COV-2 COVID-19 2020-06-14 Completed Unive rsity of PFIZER VACCINE 00:00:00 [facility] Branch SARS-COV-2 COVID-19 2020-06-14 Completed Unive rsity of PFIZER VACCINE 00:00:00 [facility] Branch SARS-COV-2 COVID-19 2020-06-14 Completed Unive rsity of PFIZER VACCINE 00:00:00 [facility] Branch SARS-COV-2 COVID-19 2020-05-24 Completed Unive rsity of PFIZER VACCINE 00:00:00 [facility] Branch SARS-COV-2 COVID-19 2020-05-24 Completed Unive rsity of PFIZER VACCINE 00:00:00 [facility] SARS-COV-2 COVID-19 2020-05-24 Completed Unive rsity of PFIZER VACCINE 00:00:00 [facility] Vital Signs Vital Name Observation Time Observation Value Comments Source Temperature Oral (F) 2012-02-26 13:00:00 98.1 F [facility] Heart Rate 2012-02-26 13:00:00 [facility] Systolic (mm Hg) 2012-02-26 13:00:00 Wilbert rial [place] Respitory Rate 2012-02-26 13:00:00 Memori al [place] Diastolic (mm Hg) 2012-02-26 13:00:00 Mem orial Jack Diastolic (mm Hg) 2012-02-26 10:15:00 Mem orial Jack Respitory Rate 2012-02-26 10:15:00 Memori al [place] Systolic (mm Hg) 2012-02-26 10:15:00 Wilbert rial [place] Temperature Oral (F) 2012-02-26 10:15:00 98.4 F [facility] [place] Heart Rate 2012-02-26 10:15:00 [facility] [place] Heart Rate 2012-02-26 05:39:00 [facility] [place] Temperature Oral (F) 2012-02-26 05:00:00 98.9 F [facility] [place] Respitory Rate 2012-02-26 05:00:00 Memori al Jack Diastolic (mm Hg) 2012-02-26 05:00:00 Mem orial Jack Systolic (mm Hg) 2012-02-26 05:00:00 Wilbert rial [place] Height 2012-02-10 15:56:00 160.02 cm [facility] [place] Weight 2012-02-10 15:56:00 [facility] Procedures Procedure Date / Time Performed Performing Clinician Sour e SARS-COV-2 COVID-2022-02-13 14:38:33 Doctor Unassigned, No [facility] [place] [facility]REYA[facility] VACCINE Name [facility] 12 YRS+, BIVALENT 0.3ML, IM, (PFIZER BELTRÁN TOP BOOSTER) SARS-COV-2 COVID-19 2021-08-19 15:37:46 Doctor Unassigned, No [facility] [place] VACCINE 12 Name Medical Branch YRS+,0.3ML,IM (PFIZER - BELTRÁN TOP) SARS-COV-2 COVID-19 2021-01-24 14:52:56 Doctor Unassigned, No [facility] [place] VACCINE,0.3ML,IM Name Medical Branch (PFIZER) Encounters Start End Encounter Admission Attending Care Care Encounter Source Date/Time Date/Time Type Type Clinicians Facility Department ID 2022-02-24 Outpatient nullFlavo [facility] [id number] Memoria 09:45:19 r [facility] 03 liliane Santiago 2022-02-13 2022-02-13 Imm/Inj Vaccine, [facility] [id number] Univers 09:00:00 09:10:00 Visit Bismark Kramer 350.1.13 .10 [facility] [id number] [place]ical NAL 044 [facility] 2022-02-13 2022-02-13 Outpatient R TANG [facility] [id number] Univers 09:00:00 09:00:00 BISMARK perez [facility] 2021-08-19 2021-08-19 Imm/Inj Vaccine, [facility] [id number] Univers 10:30:00 10:40:00 Visit Bismark Kramer 350.1.13 .10 [facility] [id number] [place] NAL [address] [place] [address] 2021-08-19 2021-08-19 Outpatient R [facility] [id number] Univers 10:30:00 10:30:00 [id number] chris [facility] 2021-08-19 2021-08-19 Outpatient R TANG [facility] [id number] Univers 10:30:00 10:30:00 BISMARK perez [facility] 2021-01-24 2021-01-24 Outpatient R TANG [facility] [id number] Univers 10:00:00 09:52:20 BISMARK perez [facility] 2021-01-24 2021-01-24 Imm/Inj Nurse, [facility] Pob Immunization [facility] [id number] Univers 09:51:55 09:52:20 Visit Bismark Kramer 350.1.13 .10 [id number] [id number] [place] dical nal [address] [facility] 2020-06-14 2020-06-14 Outpatient R PINA [facility] [id number] Univers 08:10:00 08:10:00 EUGENIO [id number] [facility] 2020-06-14 2020-06-14 Outpatient Shaggy HELLER [facility] [id number] Univers 08:10:00 08:10:00 EUGENIO [facility] 2020-05-24 2020-05-24 Outpatient Shaggy HELLER [facility] [id number] Univers 08:40:00 08:40:00 EUGENIO [id number] [facility] 2020-05-24 2020-05-24 Outpatient Shaggy HELLER [facility] [id number] Univers 08:40:00 08:40:00 EUGENIO [facility] 2020-05-24 2020-05-24 Outpatient Shaggy HELLER [facility] [id number] Univers 08:40:00 08:40:00 EUGENIO [facility] 2020-05-16 2020-05-16 Outpatient Shaggy HELLER [facility] [id number] Univers 09:30:00 09:30:00 EUGENIO [id number] [facility] 2020-05-16 2020-05-16 Outpatient Shaggy HELLER [facility] [id number] Univers 08:50:00 08:50:00 EUGENIO [facility] 2012-04-23 2012-04-23 Outpatient nullFlavo [facility] 4 [id number] Memoria 19:00:00 23:59:00 r [facility] 04 liliane Santiago 2012-02-24 2012-02-26 Inpatient nullFlavo [facility] 45 [id number] Memoria 05:19:00 09:55:00 r [facility] 02 liliane Santiago 2012-01-09 2012-01-09 Outpatient nullFlavo [facility] 4 [id number] Memoria 19:06:00 19:06:00 r [facility] 01 liliane Santiago 2011-12-12 2011-12-12 Outpatient nullFlavo [facility] 4 [id number] Memoria 18:59:00 18:59:00 r [facility] 00 liliane Santiago Results Test Description Test Time Test Comments Results Result Comments Source BEDSIDE GLUCOSE TESTING 2012-02-26 10:45:00 Test Item Value Reference Range Interpretation Comme nts Gluc POC Lifscn (test code = Gluc POC Lifscn) 133 70-99 H [id number] 08:56:00 Test Item Value Reference Range Interpretation Comments Basophils (test code = 0.3 See_Comment N [Aut omated message] The Basophils) system which ge nerated this result tra nsmitted reference range : <=1.0. The reference r maxime was not used to int erpret this result as normal/abnormal . [facility]e[id number] 08:56:00 Test Item Value Reference Range Interpretation Comments Monocytes (test code = Monocytes) 6.8 2.0-12.0 N [facility] [id number] 08:56:00 Test Item Value Reference Range Interpretation Comments eGFR (test code = eGFR) 91 [facility] CenterUveljbxBAIMXPHXN6444-24-40 08:56:00 Test Item Value Reference Range Interpretation Comments Glucose Lvl (test code = Glucose Lvl) 106 70-99 H [facility] CenterVvyggmlRJJCVDDYS8832-67-88 08:56:00 Test Item Value Reference Range Interpretation Comments Calcium Lvl (test code = Calcium Lvl) 9.3 8.5-10.5 N [facility] CenterBfwccciULSWTXLYG4100-84-09 08:56:00 Test Item Value Reference Range Interpretation Comments CO2 (test code = CO2) 29 24-32 N [facility] CenterDgjqikySPEAXWPNJ1329-78-77 08:56:00 Test Item Value Reference Range Interpretation Comments Albumin Lvl (test code = Albumin Lvl) 2.5 3.5-5.0 L [facility] CenterItyamqyDEXRDDFQL0891-44-66 08:56:00 Test Item Value Reference Range Interpretation Comments Chloride Lvl (test code = Chloride Lvl) 102 95-109 N [facility] CenterUcbvwbxJMGDMYBKH2177-93-20 08:56:00 Test Item Value Reference Range Interpretation Comments BUN (test code = BUN) 18 7-22 N [facility] CenterSyogfzhXUTAULNJR4576-04-98 08:56:00 Test Item Value Reference Range Interpretation Comments Sodium Lvl (test code = Sodium Lvl) 138 135-145 N [facility] CenterBuivqfmQUSNWKHUB3775-59-74 08:56:00 Test Item Value Reference Range Interpretation Comments Potassium Lvl (test code = Potassium 4.1 3.5-5.1 N Lvl) [facility] CenterBrupaqnUADLCDPKS1021-11-09 08:56:00 Test Item Value Reference Range Interpretation Comments Creatinine Lvl (test code = Creatinine 0.6 0.5-1.4 N Lvl) [facility] [id number] 08:56:00 Test Item Value Reference Range Interpretation Comments AST (test code = AST) 16 See_Comment N [Auto mated message] The system which ge nerated this result transmit ayah reference range : <=37. The reference range was not used to interpr et this result as mau l/abnormal. [facility] CenterDwgexwaRAXFQVXSU8303-67-80 08:56:00 Test Item Value Reference Range Interpretation Comments Total Protein (test code = Total 5.4 6.4-8.4 L Protein) [facility] CenterGbnvtyqUPAHLYPSQ5817-73-21 08:56:00 Test Item Value Reference Range Interpretation Comments Alk Phos (test code = Alk Phos) 52 39-136 N [facility] [id number] 08:56:00 Test Item Value Reference Range Interpretation Comments ALT (test code = ALT) 24 See_Comment N [Auto mated message] The system which ge nerated this result transmit ayah reference range : <=65. The reference range was not used to interpr et this result as mau l/abnormal. [facility] CenterTsvnurnRHWWLCGEE4393-30-94 08:56:00 Test Item Value Reference Range Interpretation Comments Bili Total (test code = Bili Total) 0.7 0.2-1.3 N [facility] CenterLpskjwcEPJHYCPZU4595-87-82 08:56:00 Test Item Value Reference Range Interpretation Comments AGAP (test code = AGAP) 11.1 10.0-20.0 N [facility] CenterNegqmadWTANZKEMH9585-87-56 08:56:00 Test Item Value Reference Range Interpretation Comments B/C Ratio (test code = B/C Ratio) 30 6-25 H [facility] [id number] 08:56:00 Test Item Value Reference Range Interpretation Comments Globulin (test code = Globulin) 2.9 2.0-4.0 N [facility] [id number] 08:56:00 Test Item Value Reference Range Interpretation Comments A/G Ratio (test code = A/G Ratio) 0.9 0.7-1.6 N [facility]ervilleAifsinkBZDJPVQDWW5966-47-10 08:56:00 Test Item Value Reference Range Interpretation Comments Platelet (test code = Platelet) 218 133-450 N [facility][id number] 08:56:00 Test Item Value Reference Range Interpretation Comments MPV (test code = MPV) 8.2 7.4-10.4 N [facility]ervilleArjfmyhHQGPANEAQV0443-20-68 08:56:00 Test Item Value Reference Range Interpretation Comments MCH (test code = MCH) 28.8 pg 27.0-31.0 N [facility] PflugervilleVobludiJPJRFKGEPN6643-15-21 08:56:00 Test Item Value Reference Range Interpretation Comments Hct (test code = Hct) 32.8 36.0-48.0 L [facility] Pflugervil[id number] 08:56:00 Test Item Value Reference Range Interpretation Comments MCV (test code = MCV) 89.7 81.0-99.0 N [facility]ervilleRihywzmYIGYQAWSJR6343-55-04 08:56:00 Test Item Value Reference Range Interpretation Comments MCHC (test code = MCHC) 32.0 32.0-36.0 N [facility] [place]KaewsnxCNAEHTLLUD2847-49-74 08:56:00 Test Item Value Reference Range Interpretation Comments RDW (test code = RDW) 16.2 11.5-14.5 H [facility] [place]ervilleDehycnuWBDMGORQMH1408-62-37 08:56:00 Test Item Value Reference Range Interpretation Comments RBC (test code = RBC) 3.66 4.20-5.40 L [facility] [place]ervilleLvsjbazILSKXCHMKV3872-10-88 08:56:00 Test Item Value Reference Range Interpretation Comments Hgb (test code = Hgb) 10.5 12.0-16.0 L [facility] [place]ervilleUiktwivYXFBIKANDG5135-08-46 08:56:00 Test Item Value Reference Range Interpretation Comments WBC (test code = WBC) 12.5 3.7-10.4 H [facility] [place]ervilleUrvgnifIRHKZRTGHJ9683-21-48 08:56:00 Test Item Value Reference Range Interpretation Comments Monocytes # (test code 0.9 See_Comment H [Aut omated message] The = Monocytes #) system which generated this result tra nsmitted reference range : <=0.8. The reference r maxime was not used to int erpret this result as normal/abnormal . [facility]ervilleAcsfhjeGIOAKXDEKF6982-66-14 08:56:00 Test Item Value Reference Range Interpretation Comments Eosinophils # (test code 0.1 See_Comment N [A utomated message] The = Eosinophils #) system whic h generated this result tra nsmitted reference range : <=0.5. The reference r maxime was not used to int erpret this result as normal/abnormal . [facility]ervilleXikzbnbHMTOOJMEBN4120-74-14 08:56:00 Test Item Value Reference Range Interpretation Comments Large Plt (test code = Slight *ABN*(02/26/2012 A Large Plt) 03:56:00) [facility]ervilleGnutsocHDSEGTOTGG7364-09-17 08:56:00 Test Item Value Reference Range Interpretation Comments Toxic Gran (test code Slight *ABN*(02/26/2012 A = Toxic Gran) 03:56:00) [facility]ervilleYsfawmhLZXBPJCHZT8205-82-05 08:56:00 Test Item Value Reference Range Interpretation Comments Lymphocytes # (test code = Lymphocytes 0.7 1.0-5.5 L #) [facility] [place]ervillePakfoayMCRHECWVUY2635-86-01 08:56:00 Test Item Value Reference Range Interpretation Comments Segs-Bands # (test code = Segs-Bands #) 10.9 1.5-8.1 H [facility] [place]IabfrelMFLBWZAOWG9213-12-23 08:56:00 Test Item Value Reference Range Interpretation Comments Segs (test code = Segs) 86.7 45.0-75.0 H [facility] [place]IjscccnCCAECZAOLI0969-28-33 08:56:00 Test Item Value Reference Range Interpretation Comments Lymphocytes (test code = Lymphocytes) 5.4 20.0-40.0 L [facility]ervilleBnzmtrhMCHCHGQKFC1441-60-12 08:56:00 Test Item Value Reference Range Interpretation Comments Eosinophils (test code = 0.8 See_Comment N [A utomated message] The Eosinophils) system which ge nerated this result tra nsmitted reference range : <=4.0. The reference r maxime was not used to int erpret this result as normal/abnormal . [facility] GLUCOSE ETNLQIU8025-88-10 02:14:00 Test Item Value Reference Range Interpretation Comments Gluc POC Lifscn (test code = Gluc POC 123 70-99 H Lifscn) [facility] GLUCOSE [id number] 21:00:00 Test Item Value Reference Range Interpretation Comments Gluc POC Lifscn (test code = Gluc POC 137 70-99 H Lifscn) [facility] CenterStrgjffUKGDILTPZ2901-81-14 08:20:00 Test Item Value Reference Range Interpretation Comments B/C Ratio (test code = B/C Ratio) 24 6-25 N [facility] CenterTqbbxrlRAHSUEFRD1775-91-07 08:20:00 Test Item Value Reference Range Interpretation Comments AGAP (test code = AGAP) 14.2 10.0-20.0 N [facility] CenterCnbcdrfNAWHSECEP5007-67-75 08:20:00 Test Item Value Reference Range Interpretation Comments A/G Ratio (test code = A/G Ratio) 0.9 0.7-1.6 N [facility] CenterQotidhcWORSFENPT9963-44-77 08:20:00 Test Item Value Reference Range Interpretation Comments Globulin (test code = Globulin) 2.9 2.0-4.0 N [facility] CenterXsvumehCTYEQSFFH8984-11-05 08:20:00 Test Item Value Reference Range Interpretation Comments eGFR (test code = eGFR) 56 [facility] CenterRkmrnvvJYIQTHPTK9832-99-25 08:20:00 Test Item Value Reference Range Interpretation Comments Creatinine Lvl (test code = Creatinine 1.0 0.5-1.4 N Lvl) [facility] CenterFnwldgcOOKVPQDEI9844-44-85 08:20:00 Test Item Value Reference Range Interpretation Comments Sodium Lvl (test code = Sodium Lvl) 139 135-145 N [facility] CenterJyyqdxfWEBJNTOAC2860-96-70 08:20:00 Test Item Value Reference Range Interpretation Comments BUN (test code = BUN) 24 7-22 H [facility] CenterFporbcnWQIKSNYWF5196-93-78 08:20:00 Test Item Value Reference Range Interpretation Comments Glucose Lvl (test code = Glucose Lvl) 143 70-99 H [facility] CenterQahkdbwRZGSDYPKP4627-13-66 08:20:00 Test Item Value Reference Range Interpretation Comments CO2 (test code = CO2) 29 24-32 N [facility] CenterPqifhinYHAPLCIWD1535-60-97 08:20:00 Test Item Value Reference Range Interpretation Comments Calcium Lvl (test code = Calcium Lvl) 9.0 8.5-10.5 N [facility] CenterSttsdgsZBZGODKLX1626-05-34 08:20:00 Test Item Value Reference Range Interpretation Comments Albumin Lvl (test code = Albumin Lvl) 2.6 3.5-5.0 L [facility] CenterAjtcwygCXLLGHHQP9116-01-22 08:20:00 Test Item Value Reference Range Interpretation Comments Potassium Lvl (test code = Potassium 4.2 3.5-5.1 N Lvl) [facility] CenterKxcwiolZFGLJVRFB2782-89-50 08:20:00 Test Item Value Reference Range Interpretation Comments Chloride Lvl (test code = Chloride Lvl) 100 95-109 N [facility] CenterYgchlgfXGRJJUUPW4128-66-84 08:20:00 Test Item Value Reference Range Interpretation Comments Total Protein (test code = Total 5.5 6.4-8.4 L Protein) [facility] CenterTzkdupjYEGQYNMAW7061-82-38 08:20:00 Test Item Value Reference Range Interpretation Comments Alk Phos (test code = Alk Phos) 56 39-136 N [facility] CenterGuwhjksJSFBEQKNU2614-33-46 08:20:00 Test Item Value Reference Range Interpretation Comments ALT (test code = ALT) 31 See_Comment N [Auto mated message] The system which ge nerated this result transmit ayah reference range : <=65. The reference range was not used to interpr et this result as mau l/abnormal. [facility] CenterGynoozlYZTJRONEO1009-49-00 08:20:00 Test Item Value Reference Range Interpretation Comments Bili Total (test code = Bili Total) 0.6 0.2-1.3 N [facility] CenterXqezkqnCWFDPHUGL8807-30-80 08:20:00 Test Item Value Reference Range Interpretation Comments AST (test code = AST) 20 See_Comment N [Auto mated message] The system which ge nerated this result transmit ayah reference range : <=37. The reference range was not used to interpr et this result as mau l/abnormal. [facility]ervilleWosagicGDOGSQYPJJ6868-92-77 08:20:00 Test Item Value Reference Range Interpretation Comments Hgb (test code = Hgb) 11.3 12.0-16.0 L [facility]ervilleUllrozoRYBSRPTWML9546-48-54 08:20:00 Test Item Value Reference Range Interpretation Comments RBC (test code = RBC) 3.82 4.20-5.40 L [facility]ervilleTihbnwrONUTYUCHAJ5630-28-84 08:20:00 Test Item Value Reference Range Interpretation Comments WBC (test code = WBC) 17.8 3.7-10.4 H [facility]ervilleRazzfkwEKNTPKGTRB5267-93-26 08:20:00 Test Item Value Reference Range Interpretation Comments MCH (test code = MCH) 29.6 pg 27.0-31.0 N [facility]ervilleBhjbpceHSVGAGLLVI9936-01-84 08:20:00 Test Item Value Reference Range Interpretation Comments MCV (test code = MCV) 89.4 81.0-99.0 N [facility]ervilleNbmuvxxFGYFMIDHYG4197-73-44 08:20:00 Test Item Value Reference Range Interpretation Comments Hct (test code = Hct) 34.1 36.0-48.0 L [facility]ervilleFkgjlotGOSRUPWZKS7996-83-56 08:20:00 Test Item Value Reference Range Interpretation Comments MPV (test code = MPV) 8.3 7.4-10.4 N [facility]ervilleSdlteloQEGFURKEMQ7418-10-40 08:20:00 Test Item Value Reference Range Interpretation Comments Platelet (test code = Platelet) 248 133-450 N [facility] [place]ervilleTagzaxuHTMBWCUCZT2666-38-20 08:20:00 Test Item Value Reference Range Interpretation Comments RDW (test code = RDW) 16.0 11.5-14.5 H [facility]ervilleYtjzsaoZTKKVSHYAI5777-28-25 08:20:00 Test Item Value Reference Range Interpretation Comments MCHC (test code = MCHC) 33.2 32.0-36.0 N [facility]ervilleYxidawrYDCOCKXSZP9136-49-69 08:20:00 Test Item Value Reference Range Interpretation Comments Basophils # (test code 0.1 See_Comment N [Aut omated message] The = Basophils #) system which generated this result tra nsmitted reference range : <=0.2. The reference r maxime was not used to int erpret this result as normal/abnormal . [facility]ervilleQxdxlmqJRLNDVXGJU0699-15-43 08:20:00 Test Item Value Reference Range Interpretation Comments Eosinophils # (test code 0.0 See_Comment N [A utomated message] The = Eosinophils #) system whic h generated this result tra nsmitted reference range : <=0.5. The reference r maxime was not used to int erpret this result as normal/abnormal . [facility]ervilleDtgnyuaEASDUEKHSW0797-37-43 08:20:00 Test Item Value Reference Range Interpretation Comments Lymphocytes # (test code = Lymphocytes 0.7 1.0-5.5 L #) [facility]ervilleIfdhmsrFLMZNQPHTV3254-69-90 08:20:00 Test Item Value Reference Range Interpretation Comments Monocytes # (test code 1.2 See_Comment H [Aut omated message] The = Monocytes #) system which generated this result tra nsmitted reference range : <=0.8. The reference r maxime was not used to int erpret this result as normal/abnormal . [facility]ervilleNemzmugLNDRWPLEHL3332-27-22 08:20:00 Test Item Value Reference Range Interpretation Comments Segs-Bands # (test code = Segs-Bands #) 15.8 1.5-8.1 H [facility]ervilleByjiqsxSSJIYGPAZJ0452-39-77 08:20:00 Test Item Value Reference Range Interpretation Comments Lymphocytes (test code = Lymphocytes) 4.0 20.0-40.0 L [facility]ervilleEvsvpofAFGMPISQUV0953-01-52 08:20:00 Test Item Value Reference Range Interpretation Comments Eosinophils (test code = 0.0 See_Comment N [A utomated message] The Eosinophils) system which ge nerated this result tra nsmitted reference range : <=4.0. The reference r maxime was not used to int erpret this result as normal/abnormal . [facility]ervilleIlmwiomGNNTVKFQSO1908-71-15 08:20:00 Test Item Value Reference Range Interpretation Comments Monocytes (test code = Monocytes) 6.9 2.0-12.0 N [facility]ervilleFosqzehHFAMBPEWWG6966-16-02 08:20:00 Test Item Value Reference Range Interpretation Comments Basophils (test code = 0.4 See_Comment N [Aut omated message] The Basophils) system which ge nerated this result tra nsmitted reference range : <=1.0. The reference r maxime was not used to int erpret this result as normal/abnormal . [facility]ervilleCmvykazYNMVOZXABC5249-54-58 08:20:00 Test Item Value Reference Range Interpretation Comments Segs (test code = Segs) 88.7 45.0-75.0 H [facility] GLUCOSE ZDHQBFC1278-52-39 12:17:00 Test Item Value Reference Range Interpretation Comments Comment1 (test code = Comment1) Notify RN/MD [facility] BANK AQNGNJJ1894-16-85 11:55:00 Test Item Value Reference Range Interpretation Comments Antibody Scrn (test Negative (02/24/2012 N code = Antibody Scrn) 06:55:00) [facility] [id number] 11:55:00 Test Item Value Reference Range Interpretation Comments ABO/Rh (test code = ABO/Rh) A POS [facility] CenterLduubgsLEGGPXGNX1446-92-92 16:06:00 Test Item Value Reference Range Interpretation Comments Glucose Lvl (test code = Glucose Lvl) 76 70-99 N [facility] CenterCwzccajCEQVINGSK7268-93-69 15:58:00 Test Item Value Reference Range Interpretation Comments Vitamin D, 25-OH, Total (test code = 14 30-100 L Vitamin D, 25-OH, Total) [facility] CenterNcddsnlOYNAXUQIZ4899-13-92 15:58:00 Test Item Value Reference Range Interpretation Comments Vitamin D3 25-OH (test code = Vitamin 14 D3 25-OH) [facility] CenterIwgkhniQBIBTKDDQ3177-89-15 15:58:00 Test Item Value Reference Range Interpretation Comments Vitamin D2 25-OH (test code = Vitamin no gt D2 25-OH) [facility] CenterQzpingnPDEQXMOXG2829-96-00 15:58:00 Test Item Value Reference Range Interpretation Comments Creatinine Lvl (test code = Creatinine 0.8 0.5-1.4 N Lvl) [facility] CenterOiztscgDGBRFYEPZ3377-83-08 15:58:00 Test Item Value Reference Range Interpretation Comments BUN (test code = BUN) 16 7-22 N [facility] CenterFfwqqovLQLMKAQIR9501-50-55 15:58:00 Test Item Value Reference Range Interpretation Comments eGFR (test code = eGFR) 74 [facility] CenterTualxmqRQVPDYTIW9520-57-10 15:58:00 Test Item Value Reference Range Interpretation Comments Sodium Lvl (test code = Sodium Lvl) 140 135-145 N [facility] CenterAqhyoyyRUABDIZTT8604-86-44 15:58:00 Test Item Value Reference Range Interpretation Comments Potassium Lvl (test code = Potassium 4.1 3.5-5.1 N Lvl) [facility]ervilleCbhrwjlZWXQLFOHIH3447-74-94 15:58:00 Test Item Value Reference Range Interpretation Comments Hgb (test code = Hgb) 12.6 12.0-16.0 N [facility]ervilleSusitrwFIUCNCVNJI9810-53-45 15:58:00 Test Item Value Reference Range Interpretation Comments Hct (test code = Hct) 38.3 36.0-48.0 N [facility]
[2022-02-24] MEDS ORDERED: NA CHLORIDE 0.9% 1,000 ML ONE (09:59)
[2022-02-24] MEDS ORDERED: ONDANSETRON 4 MG/2 ML VIAL ONE (09:59)
[2022-02-24 10:20] LABS: Absolute Lymphocytes (CBC) 0.3 K/uL (0.7-4.9); Hematocrit 44.1 % (36.0-45.0); MCV 89.3 fL (80-100); MPV 7.7 fL (7.6-11.3); RBC Red Blood Cell Count 4.94 M/uL (3.86-4.86)
[2022-02-24 10:42] LABS: Albumin 3.1 g/dL (3.4-5.0); Bilirubin Total 0.3 mg/dL (0.2-1.0); Protein, Total 6.6 g/dL (6.4-8.2); Troponin High Sensitivity 7.7 pg/mL (<58.9)
--- NOTE | 2022-02-24 11:37 | RAD REPORT ---
EXAM DESCRIPTION: CTAbdomen Pelvis W Contrast - 02/24/2022 11:25 am CLINICAL HISTORY: Abdominal pain. abd pain, nausea COMPARISON: No comparisons TECHNIQUE: Biphasic CT imaging of the abdomen and pelvis was performed with 100 ml non-ionic IV cont rast. All CT scans are performed using dose optimization technique as appropriate and may include automated exposure control or mA/KV adjustment according to patient size. FINDINGS: There is a small amount of right pleural fluid noted.Postsurgical changes are seen about t he stomach. The liver demonstrates no focal mass or biliary dilatation. Probable cyst in the inferior right lobe measuring 20 mm. Cholelithiasis is suspected. The spleen, pancreas and right adrenal gland are normal . There is 16 mm nodule seen left adrenal gland. Small cysts are present in the kidneys. No mass or h ydronephrosis. Prominent sigmoid diverticulosis is present without diverticulitis. No bowel obstruction seen. No ranjit e fluid or free air. Nonvisualized appendix. No evidence of significant lymphadenopathy. Mild lumbar degenerative changes. IMPRESSION: Cholelithiasis is noted. Small right pleural effusion.
[2022-02-24 11:38] LABS: Blood Morphology Comment NOT SEEN (NOT SEEN); White Blood Cell Scan OK (OK)
[2022-02-24 11:39] LABS: Platelet Estimate ADEQ
[2022-02-24 11:50] LABS: Urine Blood 1+ (Negative); Urine Glucose 1+ (Negative); Urine Protein Negative (Negative)
--- NOTE | 2022-02-24 12:05 | RAD REPORT ---
EXAM DESCRIPTION: RAD - Chest Single View - 02/24/2022 10:59 am CLINICAL HISTORY: CHEST PAIN Chest pain. COMPARISON: No comparisons FINDINGS: Portable technique limits examination quality. Mild interstitial pulmonary edema. Trace bilateral pleural effusions. The heart is mildly enlarged in size. No displaced fractures. IMPRESSION: Mild CHF.
[2022-02-24 12:10] LABS: Urine Mucus Slight /HPF (None Seen); Urine WBC Clump Rare /HPF (None Seen)
--- NOTE | 2022-02-24 12:30 | EDPHYS ---
Physician Documentation [facility] Name: Estelle Zeng Age: 81 yrs Sex: Female : 1940 Arrival Date: 02/24/2022 Time: 09:51 Bed 15 Private MD: ED Physician Av Chaudhary HPI: 02/24 11:13 This 81 yrs old Female presents to ER via EMS with complaints of generalized weakness. rn 11:13 Pt reports generalized weakness, began today with nausea, epigastric abd discomfort, rn fatigue. NO sick contacts. REports feels sick. . Onset: The symptoms/episode began/occurred this morning. Severity of symptoms: At their worst the symptoms were mild in the emergency department the symptoms are unchanged. The patient has not experienced similar symptoms in the past. The patient has not recently seen a physician. Historical: - Allergies: 09:52 Codeine; ll1 09:52 Darvon; ll1 09:52 Demerol; ll1 09:52 Hydrocodone-Acetaminophen; ll1 09:52 meperidine; ll1 09:52 Propoxyphene; ll1 - PMHx: 09:52 breast cancer; Hyperlipidemia; Hypertensive disorder; ll1 - PSHx: 09:52 breast CA-bilat, lymph nodes removed L; ll1 - Immunization history:: Client reports receiving the 2nd dose of the Covid vaccine. - Social history:: Smoking status: Patient denies any tobacco usage or history of. - Family history:: not pertinent. - Hospitalizations: : No recent hospitalization is reported. ROS: 11:13 Constitutional: + fever and chills Eyes: Negative for injury, pain, redness, and apple turner, Neck: Negative for injury, pain, and swelling, Cardiovascular: Negative for chest pain, palpitations, and edema, Respiratory: Negative for shortness of breath, cough, wheezing, and pleuritic chest pain, Abdomen/GI: Negative for vomiting, diarrhea, and constipation, Back: Negative for injury and pain, MS/Extremity: Negative for injury and deformity, Skin: Negative for injury, rash, and discoloration, Neuro: Negative for headache, numbness, tingling, and seizure. Exam: 11:13 Constitutional: This is a well developed, well nourished patient who is awake, alert, rn and in no acute distress. Head/Face: Normocephalic, atraumatic. Eyes: Periorbital areas with no swelling, redness, or edema. ENT: dry MM Cardiovascular: Regular rate and rhythm. No pulse deficits. Respiratory: No increased work of breathing, no retractions or nasal flaring. Abdomen/GI: soft, non-tender Skin: Warm, dry MS/ Extremity: Pulses equal, no cyanosis. Neuro: Awake and alert, GCS 15, oriented to person, place, time, and situation. Cranial nerves II-XII grossly intact. Motor strength 5/5 in all extremities. Sensory grossly intact. 11:55 ECG was reviewed by the Attending Physician. rn Vital Signs: 09:53 BP 129 / 75; Pulse 78; Resp 17; Temp 97.9; Pulse Ox 100% ; Weight 85.73 kg; Height 5 ll1 ft. 2 in. (157.48 cm); Pain 0/10; 11:44 BP 141 / 71; Pulse 80; Resp 17; Pulse Ox 100% on R/A; tw2 12:22 BP 139 / 69; Pulse 81; Resp 21; Pulse Ox 100% on R/A; tw2 13:18 BP 138 / 73; Pulse 77; Resp 17; Pulse Ox 100% on R/A; ld1 09:53 Body Mass Index 34.57 (85.73 kg, 157.48 cm) ll1 MDM: 09:51 Patient medically screened. rn 12:25 Differential Diagnosis COVID, flu, dehydration, UTI. Data reviewed: vital signs, nurses rn notes, lab test result(s), radiologic studies, CT scan, plain films, and as a result, I will discharge patient. Counseling: I had a detailed discussion with the patient and/or guardian regarding: the historical points, exam findings, and any diagnostic results supporting the discharge/admit diagnosis, lab results, radiology results, the need for outpatient follow up, to return to the emergency department if symptoms worsen or persist or if there are any questions or concerns that arise at home. Response to treatment: the patient's symptoms have mildly improved after treatment, and as a result, I will discharge patient. Special discussion: I discussed with the patient/guardian in detail that at this point there is no indication for admission to the hospital. It is understood, however, that if the symptoms persist or worsen the patient needs to return immediately for re-evaluation. 02/24 09:52 Order name: CBC with Diff; Complete Time: 12:15 rn 02/24 09:52 Order name: CMP; Complete Time: 11:12 rn 02/24 09:52 Order name: Lipase; Complete Time: 11:12 rn 02/24 09:52 Order name: Urine Microscopic Only; Complete Time: 12:15 rn 02/24 09:52 Order name: Flu; Complete Time: 11:12 rn 02/24 09:52 Order name: SARS-COV-2 RT PCR (Document "Date of Onset" if Symptomatic); Complete Time: rn 11:12 02/24 09:52 Order name: CT Abd/Pelvis - IV Contrast Only; Complete Time: 12:15 rn 02/24 09:52 Order name: Troponin High Sensitivity; Complete Time: 11:12 rn 02/24 09:52 Order name: XRAY Chest (1 view); Complete Time: 12:15 rn 02/24 09:52 Order name: BNP; Complete Time: 11:12 rn 02/24 10:23 Order name: CBC Smear Scan; Complete Time: 12:15 EDMS 02/24 11:50 Order name: Urine Dipstick-Ancillary; Complete Time: 12:15 EDMS 02/24 12:14 Order name: Urine Culture EDMS 02/24 09:52 Order name: IV Saline Lock; Complete Time: 12:24 rn 02/24 09:52 Order name: Labs collected and sent; Complete Time: 12:23 rn 02/24 09:52 Order name: Urine Dipstick-Ancillary (obtain specimen); Complete Time: 12:23 rn 02/24 09:52 Order name: EKG - Nurse/Tech; Complete Time: 10:23 rn 02/24 09:52 Order name: Cardiac monitoring; Complete Time: 10:23 rn 02/24 09:52 Order name: O2 Sat Monitoring; Complete Time: 10:23 rn EC:55 Rate is 76 beats/min. Rhythm is regular. QRS [place] is Normal. WA interval is normal. QRS rn interval is normal. QT interval is normal. No Q waves. T waves are Normal. No ST changes noted. Clinical impression: NSR w/ Non-specific ST/T Changes. Interpreted by me. Reviewed by me. Administered Medications: 10:20 Drug: Zofran (Ondansetron) 4 mg Route: IVP; Site: right antecubital; tw2 12:23 Follow up: Response: No adverse reaction; Nausea is decreased tw2 10:23 Drug: NS 0.9% 1000 ml Route: IV; Rate: 1 bolus; Site: right antecubital; tw2 11:15 Follow up: Response: No adverse reaction; IV Status: Completed infusion; IV Intake: tw2 1000ml Disposition Summary: 02/24/22 12:29 Discharge Ordered Location: Home rn Problem: new rn Symptoms: have improved rn Condition: Stable rn Diagnosis - SARS-associated coronavirus as the cause of diseases classified elsewhere rn - Muscle weakness (generalized) rn - Nausea rn Followup: rn - With: Josey Tirado MD - When: 2 - 3 days - Reason: Recheck today's complaints, Re-evaluation by your physician Discharge Instructions: - Discharge Summary Sheet rn - Nausea, Adult rn - Weakness rn - COVID-19 rn - 10 Things You Can Do to Manage Your COVID-19 Symptoms at Home - [facility] rn - Viral Illness, Adult rn Forms: - Medication Reconciliation Form rn - Thank You Letter rn - Antibiotic general intern - Prescription Opioid Use rn Prescriptions: - Paxlovid (EUA) 150-100 mg Oral tablet - take 2 tablet by ORAL route 2 times per day for 5 days per package directions; rn 1 packet; Refills: 0, Product Selection Permitted - ondansetron 4 mg Oral tablet,disintegrating - take 1 tablet by ORAL route every 8 hours As needed; 10 tablet; Refills: 0, rn Product Selection Permitted Signatures: Dispatcher [employer] EDAv Sanchez MD MD rn Wise, Tara, RN RN tw2 Nadine Adair RN RN ll1 Corrections: (The following items were deleted from the chart) 11:16 11:13 Constitutional: Negative for fever, chills, and weight loss, Eyes: Negative for rn injury, pain, redness, and discharge, Neck: Negative for injury, pain, and swelling, Cardiovascular: Negative for chest pain, palpitations, and edema, Respiratory: Negative for shortness of breath, cough, wheezing, and pleuritic chest pain, Abdomen/GI: Negative for vomiting, diarrhea, and constipation, Back: Negative for injury and pain, MS/Extremity: Negative for injury and deformity, Skin: Negative for injury, rash, and discoloration, Neuro: Negative for headache, numbness, tingling, and seizure, rn
--- NOTE | 2022-02-24 12:30 | ER ---
Nurse's Notes [facility] Name: Estelle Zeng Age: 81 yrs Sex: Female : 1940 Arrival Date: 02/24/2022 Time: 09:51 Bed 15 Private MD: Diagnosis: SARS-associated coronavirus as the cause of diseases classified elsewhere;Muscle weakness (generalized);Nausea Presentation: 02/24 09:53 Chief complaint: Patient states: [place] ill last night when going to restroom. 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 EMS states: IV attempted, no success. Coronavirus screen: Vaccine status: Patient reports receiving the 2nd dose of the covid vaccine. Client denies travel out of the [place] in the last 14 days. fatigue, nausea, Client presents with at least one sign or symptom that may indicate coronavirus-19. Standard/surgical mask placed on the client. Ebola Screen: Patient denies travel to an Ebola-affected area in the 21 days before illness onset. Initial Sepsis Screen: Does the patient meet any 2 criteria? No. Patient's initial sepsis screen is negative. Does the patient have a suspected source of infection? Yes: Acute abdominal pain. Risk Assessment: Do you want to hurt yourself or someone else? Patient reports no desire to harm self or others. Onset of symptoms was February 23, 2022. 09:53 Method Of Arrival: EMS ll1 09:53 Acuity: CRISTINE 3 ll1 Triage Assessment: 09:53 General: Appears uncomfortable, ill, Behavior is cooperative, appropriate for age. ll1 Pain: Denies pain. Neuro: Reports weakness. GI: Reports upper abdominal pain, nausea. Historical: - Allergies: 09:52 Codeine; ll1 09:52 Darvon; ll1 09:52 Demerol; ll1 09:52 Hydrocodone-Acetaminophen; ll1 09:52 meperidine; ll1 09:52 Propoxyphene; ll1 - PMHx: 09:52 breast cancer; Hyperlipidemia; Hypertensive disorder; ll1 - PSHx: 09:52 breast CA-bilat, lymph nodes removed L; ll1 - Immunization history:: Client reports receiving the 2nd dose of the Covid vaccine. - Social history:: Smoking status: Patient denies any tobacco usage or history of. - Family history:: not pertinent. - Hospitalizations: : No recent hospitalization is reported. Screenin:22 Abuse screen: Denies threats or abuse. Nutritional screening: No deficits noted. tw2 Tuberculosis screening: No symptoms or risk factors identified. Fall Risk Secondary diagnosis (15 points) impaired mobility. Assessment: 12:21 Reassessment: Patient appears in no apparent distress at this time. No changes from tw2 previously documented assessment. Patient and/or family updated on plan of care and expected duration. Pain level reassessed. Patient is alert, oriented x 3, equal unlabored respirations, skin warm/dry/pink. provider at bedside at this time going over results. 12:43 Reassessment: Last covid booster was 02-22-2022. ld1 13:18 Reassessment: Patient appears in no apparent distress at this time. No changes from ld1 previously documented assessment. Patient and/or family updated on plan of care and expected duration. Pain level reassessed. Patient is alert, oriented x 3, equal unlabored respirations, skin warm/dry/pink. Vital Signs: 09:53 BP 129 / 75; Pulse 78; Resp 17; Temp 97.9; Pulse Ox 100% ; Weight 85.73 kg; Height 5 ll1 ft. 2 in. (157.48 cm); Pain 0/10; 11:44 BP 141 / 71; Pulse 80; Resp 17; Pulse Ox 100% on R/A; tw2 12:22 BP 139 / 69; Pulse 81; Resp 21; Pulse Ox 100% on R/A; tw2 13:18 BP 138 / 73; Pulse 77; Resp 17; Pulse Ox 100% on R/A; ld1 09:53 Body Mass Index 34.57 (85.73 kg, 157.48 cm) ll1 ED Course: 09:51 Patient arrived in ED. rn 09:51 Av Chaudhary MD is Attending Physician. rn 09:51 Bed in low position. Call light in reach. Side rails up X2. Adult w/ patient. Cardiac tw2 monitor on. Pulse ox on. NIBP on. Warm blanket given. 09:52 Arm band placed on Patient placed in an exam room, on a stretcher. ll1 09:54 Casi Christy RN is Primary Nurse. tw2 09:55 Triage completed. ll1 10:20 Inserted saline lock: 22 gauge in right antecubital area, using aseptic technique. tw2 Blood collected. 11:01 XRAY Chest (1 view) In Process Unspecified. EDMS 11:26 CT Abd/Pelvis - IV Contrast Only In Process Unspecified. EDMS 12:23 No provider procedures requiring assistance completed. tw2 12:29 Josey Tirado MD is Referral Physician. rn 13:18 IV discontinued, intact, bleeding controlled, No redness/swelling at site. Pressure ld1 dressing applied. Administered Medications: 10:20 Drug: Zofran (Ondansetron) 4 mg Route: IVP; Site: right antecubital; tw2 12:23 Follow up: Response: No adverse reaction; Nausea is decreased tw2 10:23 Drug: NS 0.9% 1000 ml Route: IV; Rate: 1 bolus; Site: right antecubital; tw2 11:15 Follow up: Response: No adverse reaction; IV Status: Completed infusion; IV Intake: tw2 1000ml Medication: 12:22 VIS not applicable for this client. tw2 Intake: 11:15 IV: 1000ml; Total: 1000ml. tw2 Outcome: 12:29 Discharge ordered by . rn 13:17 Discharged to home via wheelchair, with significant other. ld1 13:17 Condition: stable 13:17 Discharge instructions given to patient, significant other, Instructed on discharge instructions, follow up and referral plans. medication usage, Demonstrated understanding of instructions, follow-up care, medications, Prescriptions given X 2. 13:18 Patient left the ED. ld1 Signatures: Dispatcher [employer] EDMS Av Chaudhary MD MD rn Wise, Tara, RN RN tw2 Nadine Adair RN RN 1 Sammie Fuller RN RN ld1
[2022-02-24 13:32] VITALS: TEMP 97.9; O2SAT 100
[2022-02-24 13:45] VITALS: BP 138/73
--- NOTE | 2022-02-27 14:34 | EKG ---
Test Date: 2022-02-24 Test Time: 10:23:17 Eyeglass Frames Polisher: TOMI MEASUREMENT RESULTS: Intervals: Rate: 76 OR: 318 QRSD: 92 QT: 422 QTc: 474 [place]: P: 76 OR: 318 QRS: 33 T: 22 INTERPRETIVE STATEMENTS: Sinus rhythm with 1st degree AV block with occasional premature ventricular complexes and premature atrial complexes Possible Anterior infarct, age undetermined Abnormal ECG Compared to ECG 03/06/2017 11:16:46 Atrial premature complex(es) now present Ventricular premature complex(es) now present Myocardial infarct finding still present Electronically Signed On 02-27-22 14:31:25 CDT by Andrea Villalta
== END 2022-02-24 13:18 | disposition home or self-care (01) ==
LOC: ER 09:40
DX: U07.1 COVID-19 (principal); R11.0 Nausea; I10 Essential (primary) hypertension; Z85.3 Personal history of malignant neoplasm of breast; Z88.5 Allergy status to narcotic agent; Z88.8 Allergy status to other drugs, medicaments and biological substances
CPT/HCPCS: 96361; 87088; 85025; 87086; 36415; 84484; 83690; 80053; 83880; 87804 ×2; 74177; 71045; 96374; 99285; U0003; Q9967; J7030; J2405; 81003; 81015; 93005

== ENCOUNTER 2023-08-10 08:41 | Emergency (ER) | payer OTHER ==
[2023-08-10 10:01] LABS: Absolute Eosinophils 0.1 K/uL (0-0.5); Absolute Lymphocytes (CBC) 0.8 K/uL (0.7-4.9); Absolute Monocytes 0.6 K/uL (0.1-1.3); Basophils % 0.5 % (0-1.3); Eosinophils % 1.3 % (0-4.4); Hematocrit 35.4 % (36.0-45.0); Hemoglobin 11.6 g/dL (12.0-15.0); Lymphocytes % 9.9 % (15.3-44.8); MCH 29.9 pg (27.0-35.0); MCHC 32.8 g/dL (32.0-36.0); MPV 7.2 fL (7.6-11.3); Monocytes % 6.7 % (3.3-12.3); Neutrophils % 81.6 % (41.7-73.7); Platelets 336 thou/uL (152-406); RBC Red Blood Cell Count 3.89 M/uL (3.86-4.86); Red Cell Distribution Width 15.4 % (12.1-15.2)
[2023-08-10 10:23] LABS: Anion Gap 4.1 mEq/L (5.0-15.0); Potassium 4.1 mEq/L (3.5-5.1)
--- NOTE | 2023-08-10 10:58 | RAD REPORT ---
EXAM DESCRIPTION: [place] Single View08/10/2023 10:36 am CLINICAL HISTORY: edema COMPARISON: Chest Single View dated 02/24/2022 TECHNIQUE: Portable AP view of the chest. FINDINGS: The lungs show no focal consolidation. Blunting of the costophrenic angles bilaterally, pr ogressive on the left, may reflect small effusions. . No pneumothorax. The cardiomediastinal contour s are unremarkable. IMPRESSION: Possible small effusions opacifying the costophrenic angles.
--- NOTE | 2023-08-10 12:19 | RAD REPORT ---
EXAM DESCRIPTION: US - Extrem Venous W Compress Des - 08/10/2023 11:46 am CLINICAL HISTORY: Swelling COMPARISON: None. TECHNIQUE: Real-time sonographic evaluation of the bilateral lower extremity deep venous systems was performed. FINDINGS: Normal compressibility, flow augmentation, phasic flow and spontaneous flow is identified in both the left and right lower extremity deep venous systems. No intraluminal filling defects seen. IMPRESSION: No DVT in either lower extremity.
--- NOTE | 2023-08-10 12:23 | ER ---
Nurse's Notes [facility] Name: Estelle Zeng Age: 83 yrs Sex: Female : 1940 Arrival Date: 08/10/2023 Time: 08:41 Bed 16 Private MD: Diagnosis: Pedal Edema Presentation: 08/09 08:58 Chief complaint: Patient states: Leg swelling bilat x4 days. Coronavirus screen: At rs5 this time, the client does not indicate any symptoms associated with coronavirus-19. Ebola Screen: No symptoms or risks identified at this time. Initial Sepsis Screen: Does the patient meet any 2 criteria? No. Patient's initial sepsis screen is negative. Does the patient have a suspected source of infection? No. Patient's initial sepsis screen is negative. Risk Assessment: Do you want to hurt yourself or someone else? Patient reports no desire to harm self or others. Onset of symptoms was August 06, 2023. 08:58 Method Of Arrival: Wheelchair rs5 08:58 Acuity: CRISTINE 3 rs5 Historical: - Allergies: 08:57 Codeine; rs5 08:57 Darvon; rs5 08:57 Demerol; rs5 08:57 Hydrocodone-Acetaminophen; rs5 08:57 meperidine; rs5 08:57 Propoxyphene; rs5 - PMHx: 08:57 breast cancer; Hyperlipidemia; Hypertensive disorder; rs5 - PSHx: 08:57 breast CA-bilat; rs5 - Immunization history:: Adult Immunizations up to date. - Infectious Disease History:: Denies. - Social history:: Smoking status: Patient denies any tobacco usage or history of. Screenin:00 [facility] ED Fall Risk Assessment (Adult) History of falling in the last 3 months, rs5 including since admission No falls in past 3 months (0 pts) Confusion or Disorientation No (0 pts) Intoxicated or Sedated No (0 pts) Impaired Gait No (0 pts) Mobility Assist Device Used Yes (1 pt) Altered Elimination No (0 pt) Score/Fall Risk Level 0 - 2 = Low Risk Oriented to surroundings, Maintained a safe environment. Abuse screen: Denies threats or abuse. Nutritional screening: No deficits noted. Tuberculosis screening: No symptoms or risk factors identified. Assessment: 08:55 General: Appears in no apparent distress. uncomfortable, Behavior is calm, cooperative. rs5 08:55 Pain: Denies pain. Neuro: Level of Consciousness is awake, alert, obeys commands, rs5 Oriented to person, place, time, situation. Cardiovascular: Patient's skin is warm and dry. Rhythm is regular. Respiratory: Airway is patent Respiratory effort is even, unlabored, Respiratory pattern is regular, symmetrical. GI: Abdomen is round non-distended, Abd is soft and non tender. : No signs and/or symptoms were reported regarding the genitourinary system. EENT: No signs and/or symptoms were reported regarding the EENT system. Derm: Skin is intact, Skin is pink, warm \T\ dry. Musculoskeletal: Range of motion: intact in all extremities, Swelling present in right leg and left leg. 10:01 Reassessment: No changes from previously documented assessment. rs5 11:15 Reassessment: Patient and/or family updated on plan of care and expected duration. Pain rs5 level reassessed. Patient is alert, oriented x 3, equal unlabored respirations, skin warm/dry/pink. 12:02 Reassessment: No changes from previously documented assessment. rs5 Vital Signs: 08:58 BP 155 / 76; Pulse 92; Resp 18; Pulse Ox 98% on R/A; rs5 12:01 BP 140 / 81; Pulse 80; Resp 17; Pulse Ox 99% on R/A; rs5 ED Course: 08:46 Patient arrived in ED. im 08:51 Ulysses Nazario DO is Attending Physician. ms3 08:57 Jermaine Gamez, RN is Primary Nurse. rs5 09:00 Triage completed. rs5 09:00 Patient has correct armband on for positive identification. Placed in gown. Bed in low rs5 position. Call light in reach. Side rails up X2. 09:00 No provider procedures requiring assistance completed. rs5 10:38 XRAY Chest (1 view) In Process Unspecified. EDMS 11:47 US Extremity Venous W Compression Des In Process Unspecified. EDMS 12:22 Josey Tirado MD is Referral Physician. ms3 12:40 IV discontinued, intact, bleeding controlled, No redness/swelling at site. Pressure rs5 dressing applied. Administered Medications: 12:29 Drug: Furosemide PO 40 mg PO once Route: PO; rs5 Medication: 09:00 VIS not applicable for this client. rs5 Outcome: 12:23 Discharge ordered by . ms3 12:40 Discharged to home ambulatory, rs5 12:40 Condition: stable 12:40 Discharge instructions given to patient, family, Instructed on discharge instructions, follow up and referral plans. medication usage, Demonstrated understanding of instructions, follow-up care, medications, Prescriptions given X 1, 12:43 Patient left the ED. ld1 Signatures: Dispatcher [employer] EDMS Ulysses Nazario DO DO ms3 Sammie Nazario RN RN ld1 Jermaine Gamez RN RN rs5 Maddi Aguila
--- NOTE | 2023-08-10 12:23 | EDPHYS ---
Physician Documentation [facility] Name: Estelle Zeng Age: 83 yrs Sex: Female : 1940 Arrival Date: 08/10/2023 Time: 08:41 Bed 16 Private MD: ED Physician Ulysses Nazario HPI: 08/09 09:49 This 83 yrs old Female presents to ER via Wheelchair with complaints of Leg Swelling. ms3 09:49 83-year-old female with past medical history of breast cancer, hyperlipidemia, ms3 hypertension presents to the emergency department for bilateral lower extremity swelling since . Patient denies pain. Patient denies shortness of breath, chest pain.. Historical: - Allergies: 08:57 Codeine; rs5 08:57 Darvon; rs5 08:57 Demerol; rs5 08:57 Hydrocodone-Acetaminophen; rs5 08:57 meperidine; rs5 08:57 Propoxyphene; rs5 - PMHx: 08:57 breast cancer; Hyperlipidemia; Hypertensive disorder; rs5 - PSHx: 08:57 breast CA-bilat; rs5 - Immunization history:: Adult Immunizations up to date. - Infectious Disease History:: Denies. - Social history:: Smoking status: Patient denies any tobacco usage or history of. ROS: 09:49 Constitutional: Negative for fever, and chills. Neck: Negative for injury, pain, and ms3 swelling, Cardiovascular: Negative for chest pain, and palpitations. Respiratory: Negative for shortness of breath, cough, wheezing, and pleuritic chest pain, Abdomen/GI: Negative for abdominal pain, nausea, vomiting, diarrhea, and constipation, 09:49 MS/extremity: Positive for Edema, 09:49 All other systems are negative, Exam: 09:50 Constitutional: This is a well developed, well nourished patient who is awake, alert, ms3 and in no acute distress. Head/Face: Normocephalic, atraumatic. Chest/axilla: Normal chest wall appearance and motion. Nontender with no deformity. Cardiovascular: Regular rate and rhythm with a normal S1 and S2. No gallops, murmurs, or rubs. Normal PMI, no JVD. No pulse deficits. Respiratory: Lungs have equal breath sounds bilaterally, clear to auscultation and percussion. No rales, rhonchi or wheezes noted. No increased work of breathing, no retractions or nasal flaring. Abdomen/GI: Soft, non-tender, with normal bowel sounds. No distension or tympany. No guarding or rebound. No evidence of tenderness throughout. Skin: Warm, dry with normal turgor. Normal color with no rashes, no lesions, and no evidence of cellulitis. MS/ Extremity: Pulses equal, no cyanosis. Neurovascular intact. Full, normal range of motion. 09:57 ECG was reviewed by the Attending Physician. ms3 Vital Signs: 08:58 BP 155 / 76; Pulse 92; Resp 18; Pulse Ox 98% on R/A; rs5 12:01 BP 140 / 81; Pulse 80; Resp 17; Pulse Ox 99% on R/A; rs5 MDM: 09:31 Patient medically screened. ms3 09:50 Differential diagnosis: Heart failure versus venous insufficiency versus hypertension. ms3 12:23 Data reviewed: vital signs, nurses notes, lab test result(s), radiologic studies, and ms3 as a result, I will discharge patient. Management of patient was discussed with the following: Primary Care Provider: Discussed case with Dr Tirado. He would like patient to have bilateral lower extremity dopplers performed. If negative patient can be discharged with Lasix and follow up outpatient.. Independent interpretation of the following test(s) in the Emergency Department X-Ray: My interpretation is Chest x-ray image reviewed by me does not reveal pulmonary edema. Care significantly affected by the following chronic conditions: Hypertension, Hyperlipidemia. Counseling: I had a detailed discussion with the patient and/or guardian regarding the historical points, exam findings, and any diagnostic results supporting the discharge/admit diagnosis, lab results, radiology results, the need for outpatient follow up, to return to the emergency department if symptoms worsen or persist or if there are any questions or concerns that arise at home. Special discussion: I discussed with the patient/guardian in detail that at this point there is no indication for admission to the hospital. It is understood, however, that if the symptoms persist or worsen the patient needs to return immediately for re-evaluation. ED course: Discussed imaging and labs with patient. Patient to follow-up with primary care physician in 2 to 3 days. Patient or stands and agrees with plan. All questions were answered. Return precautions discussed include worsening symptoms, or any other concerns. 08/09 09:13 Order name: Basic Metabolic Panel; Complete Time: 10:25 ms3 08/09 09:13 Order name: CBC with Diff; Complete Time: 10:25 ms3 08/09 09:13 Order name: NT PRO-BNP; Complete Time: 10:25 ms3 08/09 09:13 Order name: XRAY Chest (1 view); Complete Time: 11:02 ms3 08/09 11:07 Order name: US Extremity Venous W Compression Des; Complete Time: 12:22 ms3 08/09 09:13 Order name: EKG; Complete Time: 09:13 ms3 08/09 09:13 Order name: Cardiac monitoring; Complete Time: 09:58 ms3 08/09 09:13 Order name: EKG - Nurse/Tech; Complete Time: 09:58 ms3 08/09 09:13 Order name: IV Saline Lock; Complete Time: 09:58 ms3 08/09 09:13 Order name: Labs collected and sent; Complete Time: 09:58 ms3 08/09 09:13 Order name: O2 Per Protocol; Complete Time: 09:58 ms3 08/09 09:13 Order name: O2 Sat Monitoring; Complete Time: 09:59 ms3 EC:57 Rate is 72 beats/min. Rhythm is regular. QRS [place] is Normal. PA interval is normal. QRS ms3 interval is normal. Clinical impression: Normal ECG and 1st degree heart block. Interpreted by me. Reviewed by me. Administered Medications: 12:29 Drug: Furosemide PO 40 mg PO once Route: PO; rs5 Disposition Summary: 08/10/23 12:23 Discharge Ordered Notes: Location: Home ms3 Condition: Stable ms3 Diagnosis - Pedal Edema ms3 Followup: ms3 - With: Josey Tirado MD - When: 2 - 3 days - Reason: Recheck today's complaints Discharge Instructions: - Discharge Summary Sheet ms3 - Edema, [id number] ms3 Forms: - Medication Reconciliation Form ms3 - Thank You Letter ms3 - Antibiotic Education ms3 - Prescription Opioid Use ms3 - Patient Portal Instructions ms3 - Leadership Thank You Letter ms3 Prescriptions: - Lasix 20 mg Oral Tablet - take 1 tablet ORAL route once daily; 20 tablet; Refills: 0, Product Selection ms3 Permitted Signatures: Dispatcher [employer] EDMS Ulysses Nazario, DO DO ms3 Jermaine Gamez, RN RN rs5
[2023-08-10] MEDS ORDERED: FUROSEMIDE 40 MG TABLET ONE (12:30)
[2023-08-10 15:12] VITALS: BP 155/76; O2SAT 98
--- NOTE | 2023-08-11 16:18 | EKG ---
Test Date: 2023-08-10 Test Time: 10:33:30 Hide Handler: ROCK MEASUREMENT RESULTS: Intervals: Rate: 96 WI: 126 QRSD: 74 QT: 378 QTc: 477 [place]: P: 66 WI: 126 QRS: 44 T: 45 INTERPRETIVE STATEMENTS: Normal sinus rhythm Nonspecific T wave abnormality Prolonged QT Abnormal ECG Compared to ECG 08/10/2023 09:50:42 T-wave abnormality now present Prolonged QT interval now present First degree AV block no longer present Electronically Signed On 08-11-23 16:15:12 CDT by Andrea Villalta
--- NOTE | 2023-08-11 16:19 | EKG ---
Test Date: 2023-08-10 Test Time: 09:50:42 Telesales Specialist: ROCK MEASUREMENT RESULTS: Intervals: Rate: 72 [place]: 234 QRSD: 82 QT: 376 QTc: 411 [place]: P: -9 [place]: 234 QRS: 44 T: 33 INTERPRETIVE STATEMENTS: Sinus rhythm with 1st degree AV block Otherwise normal ECG Compared to ECG 02/24/2022 10:23:17 Atrial premature complex(es) no longer present Ventricular premature complex(es) no longer present Myocardial infarct finding no longer present Electronically Signed On 08-11-23 16:15:17 CDT by Andrea Villalta
== END 2023-08-10 12:43 | disposition home or self-care (01) ==
LOC: ER 08:41
DX: R60.9 Edema, unspecified (principal); I10 Essential (primary) hypertension; Z88.5 Allergy status to narcotic agent; Z88.8 Allergy status to other drugs, medicaments and biological substances; Z85.3 Personal history of malignant neoplasm of breast
CPT/HCPCS: 36415; 71045; 80048; 83880; 85025; 93005; 93970; 99283

== ENCOUNTER 2023-08-13 21:38 | Emergency (ER) | payer OTHER ==
[2023-08-13 22:08] LABS: Absolute Lymphocytes (CBC) 0.2 K/uL (0.7-4.9); Absolute Monocytes 0.4 K/uL (0.1-1.3); Absolute Neutrophil 16.2 K/uL (1.8-8.0); Basophils % 0.2 % (0-1.3); Eosinophils % 0.1 % (0-4.4); Hemoglobin 12.8 g/dL (12.0-15.0); Lymphocytes % 1.4 % (15.3-44.8); MCH 30.4 pg (27.0-35.0); MCHC 33.6 g/dL (32.0-36.0); MCV 90.7 fL (80-100); Monocytes % 2.4 % (3.3-12.3); Neutrophils % 95.9 % (41.7-73.7); Platelets 287 thou/uL (152-406); RBC Red Blood Cell Count 4.19 M/uL (3.86-4.86); Red Cell Distribution Width 15.3 % (12.1-15.2)
[2023-08-13 22:22] LABS: Albumin 2.7 g/dL (3.4-5.0); Albumin/Globulin Ratio 0.8 (1.1-1.8); Anion Gap 9.8 mEq/L (5.0-15.0); Bilirubin Total 1.8 mg/dL (0.2-1.0); Globulin 3.3 g/dL (2.3-3.5); Potassium 3.8 mEq/L (3.5-5.1)
[2023-08-13] MEDS ORDERED: NA CHLORIDE 0.9% 1,000 ML ONE (22:29)
[2023-08-13] MEDS ORDERED: ONDANSETRON 4 MG/2 ML VIAL ONE (22:29)
[2023-08-13] MEDS ORDERED: FAMOTIDINE 20 MG/2 ML VIAL IV ONE (22:29)
--- NOTE | 2023-08-13 22:33 | RAD REPORT ---
EXAM DESCRIPTION: US - Abdomen Exam Limited - 08/13/2023 10:22 pm CLINICAL HISTORY: ABD PAIN COMPARISON: Abdomen Pelvis W Contrast dated 02/24/2022 FINDINGS: The gallbladder demonstrates shadowing gallstones. No pericholecystic fluid or gallbladder wall thickening. The common bile duct is within normal limits for age measuring 6 mm. The liver demonstrates no findings of intrahepatic biliary dilatation. Echogenic lesion in the right hepatic lobe measuring 2.5 cm near the gallbladder fossa was present on the CT from 02/24/2022. This is most consistent with a hemangioma. IMPRESSION: Cholelithiasis without sonographic evidence of acute cholecystitis. Right hepatic lobe hemangioma.
[2023-08-13 22:36] LABS: Specific Gravity 1.019 (1.005-1.030); Sqamous Epithelial <5 /HPF (None Seen); Urine Bacteria <20 /HPF (<20); Urine Bilirubin NEGATIVE (Negative); Urine Blood Negative (Negative); Urine Clarity Extremely Turbid (Clear); Urine Color Yellow (Yellow); Urine Crystals Unidentified Many /HPF (None Seen); Urine Culture Reflex Order REFLEXED; Urine Glucose NEGATIVE (Negative); Urine Ketones 2+ (Negative); Urine Microscopic Reflex YN ORDER UMIC; Urine Mucus Slight /HPF (None Seen); Urine Nitrite NEGATIVE (Negative); Urine Protein 1+ (Negative); Urine Urobilinogen 1+ (Normal); Urine WBC >50 /HPF (<5); Urine pH 8.5 (5.0-7.0)
[2023-08-13 22:41] LABS: Blood Morphology Comment NOT SEEN (NOT SEEN); Differential Total Cells Count 100; Lymphocytes 11 % (15-42); Monocytes 1 % (0-10); Platelet Estimate ADEQ; Segmented Neutrophils 88 % (40-80)
[2023-08-14] MEDS ORDERED: PIPERACIL/TAZO 3.375 GM VIAL IV ONE (00:58)
[2023-08-14] MEDS ORDERED: NA CHLORIDE 0.9% 100 ML ONE (00:59)
--- NOTE | 2023-08-14 01:17 | ER ---
Nurse's Notes [facility] Name: Estelle Zeng Age: 83 yrs Sex: Female : 1940 Arrival Date: 08/13/2023 Time: 21:38 Bed 7 Private MD: Diagnosis: Nonspecific reactive hepatitis;Cholelithiasis with acute cholecystitis, transaminitis, acute hepatitis;Pericholecystic fluid, elevated liver enzymes Presentation: 08/12 21:44 Chief complaint: EMS states: 83 year old female reports right upper quadrant pain and ha1 nausea. 4 mg Zofran , 15 mg Ketorolac were given during route. pain now 0/10. 21:44 Coronavirus screen: Vaccine status: Patient reports receiving the 2nd dose of the covid ha1 vaccine. Ebola Screen: No symptoms or risks identified at this time. Initial Sepsis Screen: Does the patient meet any 2 criteria? No. Patient's initial sepsis screen is negative. Does the patient have a suspected source of infection? No. Patient's initial sepsis screen is negative. Risk Assessment: Do you want to hurt yourself or someone else? Patient reports no desire to harm self or others. Onset of symptoms was August 13, 2023. 21:44 Method Of Arrival: EMS: [facility] ha1 21:44 Acuity: CRISTINE 3 ha1 Triage Assessment: 21:44 General: Appears comfortable, Behavior is calm, cooperative. Pain: Denies pain. Neuro: ha1 Level of Consciousness is awake, alert, obeys commands, Oriented to person, place, time, situation. Cardiovascular: Capillary refill < 3 seconds Patient's skin is warm and dry. Respiratory: Airway is patent Respiratory effort is even, unlabored, Respiratory pattern is regular, symmetrical. GI: Abdomen is round obese, Bowel sounds present X 4 quads. Reports upper abdominal pain, nausea. : No signs and/or symptoms were reported regarding the genitourinary system. Derm: Skin is pink, warm \T\ dry. Musculoskeletal: Circulation, motion, and sensation intact. Historical: - Allergies: 21:44 Codeine; ha1 21:44 Darvon; ha1 21:44 Demerol; ha1 21:44 Hydrocodone-Acetaminophen; ha1 21:44 meperidine; ha1 21:44 Propoxyphene; ha1 - PMHx: 21:44 breast cancer; Hyperlipidemia; Hypertensive disorder; ha1 - PSHx: 21:44 breast CA-bilat; ha1 - Immunization history:: Adult Immunizations up to date. - Infectious Disease History:: Denies. - Social history:: Smoking status: Patient denies any tobacco usage or history of. - Family history:: not pertinent. - Hospitalizations: : No recent hospitalization is reported. Screenin:59 Abuse screen: Denies threats or abuse. Denies injuries from another. Nutritional ha1 screening: No deficits noted. Tuberculosis screening: No symptoms or risk factors identified. 08/13 06:34 [facility] ED Fall Risk Assessment (Adult) History of falling in the last 3 months, tm6 including since admission Yes- single mechanical fall (1 pt) Confusion or Disorientation No (0 pts) Intoxicated or Sedated No (0 pts) Impaired Gait Yes (1 pt) Mobility Assist Device Used Yes (1 pt) Altered Elimination No (0 pt) Score/Fall Risk Level 3 or more points = High Risk Oriented to surroundings, Maintained a safe environment, Educated pt \T\ family on fall prevention, incl call for assistance when getting out of bed. Assessment: 08/12 21:44 Reassessment: see triage assessment. ha1 22:15 Reassessment: Patient and/or family updated on plan of care and expected duration. Pain ha1 level reassessed. Patient is alert, oriented x 3, equal unlabored respirations, skin warm/dry/pink. Patient denies pain at this time. 22:56 Reassessment: Patient and/or family updated on plan of care and expected duration. Pain tm6 level reassessed. Patient is alert, oriented x 3, equal unlabored respirations, skin warm/dry/pink. 08/13 00:02 Reassessment: Patient and/or family updated on plan of care and expected duration. Pain tm6 level reassessed. Patient is alert, oriented x 3, equal unlabored respirations, skin warm/dry/pink. 00:33 Reassessment: Patient and/or family updated on plan of care and expected duration. Pain ha1 level reassessed. Patient is alert, oriented x 3, equal unlabored respirations, skin warm/dry/pink. Patient denies pain at this time. 01:30 Reassessment: Patient and/or family updated on plan of care and expected duration. Pain ha1 level reassessed. Patient is alert, oriented x 3, equal unlabored respirations, skin warm/dry/pink. Patient denies pain at this time. Patient states feeling better. Patient states symptoms have improved. 03:04 Reassessment: No changes from previously documented assessment. tm6 04:12 Reassessment: No changes from previously documented assessment. tm6 05:49 Reassessment: report attempted. tm6 05:56 Reassessment: report attempted. tm6 06:15 Reassessment: report attempted. tm6 06:33 Reassessment: report given to Tara JOHN at [facility]. tm6 06:34 GI: Abd is soft and non tender Abd is soft. tm6 06:35 Reassessment: patient picked up by EMS. tm6 06:43 Reassessment: Patient is alert, oriented x 3, equal unlabored respirations, skin tm6 warm/dry/pink. Vital Signs: 08/12 21:46 BP 161 / 104; Pulse 80; Resp 18 S; Temp 98.4(O); Pulse Ox 100% on R/A; Pain 0/10; rv1 21:58 Weight 81.19 kg; Height 5 ft. 5 in. ; ha1 22:56 BP 113 / 52; Pulse 89; Resp 20; Pulse Ox 96% on R/A; tm6 08/13 00:02 BP 96 / 58; Pulse 94; Resp 18; Pulse Ox 94% on R/A; tm6 00:33 BP 108 / 64; Pulse 96; Resp 17 S; Pulse Ox 95% on R/A; ha1 02:00 BP 108 / 48; Pulse 100; Resp 18 S; Pulse Ox 94% on R/A; ha1 03:04 BP 108 / 48; Pulse 108; Resp 24; Pulse Ox 97% on 2 lpm NC; tm6 04:11 BP 114 / 41; Pulse 104; tm6 05:45 Pulse 93; Resp 25; Pulse Ox 98% on 2 lpm NC; Pain 0/10; tm6 05:46 BP 100 / 45; tm6 06:43 BP 100 / 45; Pulse 89; Resp 19; Pulse Ox 98% on R/A; Pain 0/10; tm6 08/12 21:58 Body Mass Index 29.79 (81.19 kg, 165.1 cm) ha1 08/12 21:46 Pain Scale: Adult rv1 05:45 Pain Scale: Adult tm6 06:43 Pain Scale: Adult tm6 [place] Coma Score: 05:32 Eye Response: spontaneous(4). Motor Response: obeys commands(6). Verbal Response: sp4 oriented(5). Total: 15. ED Course: 08/12 21:44 Patient arrived in ED. wm 21:44 Arm band placed on right wrist. ha1 21:47 Rayray Stoner MD is Attending Physician. sp4 21:54 Triage completed. ha1 21:59 Maintain EMS IV. Dressing intact. Good blood return noted. Site clean \T\ dry. Gauge \T\ douglas 1 site: 22 gauge R. hand. 22:12 CMP Sent. rv1 22:13 Lipase Sent. rv1 22:13 Urinalysis w/ reflexes Sent. rv1 22:15 Safety checks: Family/friend present: yes. Placed in gown. Bed in low position. Call rv1 light in reach. Side rails up X2. Door closed. Noise minimized. Warm blanket given. Client placed on continuous cardiac and pulse oximetry monitoring. NIBP monitoring applied. pvc monitor on. Pulse ox on. Assisted to bedside commode. 22:24 Abdomen Limited US In Process Unspecified. EDMS 22:31 EKG done, by ED staff, reviewed by Rayray Stoner MD. tm6 22:53 Beto Valentin, RN is Primary Nurse. tm6 23:33 CT Abd/Pelvis - IV Contrast Only In Process Unspecified. EDMS 08/13 02:11 Initiated transfer to [facility], spoke with Cammy Stiles. wm 02:51 BS called to do Doc to Doc with their Hospitalist Dr. Laughlin. wm 04:57 Called [facility] to get an update regarding acceptance, was told Pt will be accepted there, wm but still waiting on a bed assignment. Dr. Stoner and Beto RN notified. 05:29 Pt accepted to [facility] Rm:[id number] Alma Laughlin \T\ 0310 per Cammy Stiles. wm 05:29 EMS will transport with an ETA \T\ 0615. wm 06:34 Provided Education on: NPO status. tm6 06:34 No provider procedures requiring assistance completed. Patient transferred, IV remains tm6 in place. Administered Medications: 08/12 22:37 Drug: Famotidine IVP 20 mg IVP once; dilute with 10 mL 0.9% NaCl; give over 2 minutes ha1 Route: IVP; Site: right hand; 22:37 Drug: Ondansetron IVP 4 mg IVP once; over 2 minutes Route: IVP; Site: right hand; ha1 22:38 Drug: NS 0.9% IV 1000 ml IV at 75 ml/hr continuous Route: IV; Rate: 75 ml/hr; Site: ha1 right hand; 08/13 01:22 Drug: Piperacillin-Tazobactam IVPB 3.375 grams IVPB once over 60 mins; (mix in NS 100 ha1 mL) Route: IVPB; Infused Over: 60 mins; Site: right hand; 05:56 Follow up: IV Status: Completed infusion tm6 03:00 Drug: NS 0.9% IV 500 ml IV at bolus once Route: IV; Rate: bolus; Site: right hand; tm6 05:56 Follow up: Response: No adverse reaction; IV Status: Completed infusion; IV Intake: tm6 500ml 05:55 Not Given (Patient Refused): morphineor iv 4 mg IVP once over 4 mins tm6 Medication: 06:35 VIS not applicable for this client. tm6 Intake: 05:56 IV: 500ml; Total: 500ml. tm6 Outcome: 01:16 ER care complete, transfer ordered by sp4 06:34 Transferred by ground EMS to [facility], [facility], 6 06:34 Condition: stable 06:34 Instructed on the need for transfer, 06:43 Patient left the ED. tm6 Signatures: Dispatcher [employer] EDMS Natasha Ureña Heidy, RN RN ha1 Caro Coelho rv1 Rayray Stoner MD MD sp4 Beto Valentin RN RN tm6 Corrections: (The following items were deleted from the chart) 08/12 21:56 21:44 PSHx: breast CA-bilat; ha1 ha1
--- NOTE | 2023-08-14 01:17 | EDPHYS ---
Physician Documentation [facility] Name: Estelle Zeng Age: 83 yrs Sex: Female : 1940 Arrival Date: 08/13/2023 Time: 21:38 Bed 7 Private MD: ED Physician Rayray Stoner HPI: 08/13 00:39 This 83 yrs old Female presents to ER via EMS with complaints of Abd Pain > sp4 49 y/o. 05:32 83-year-old female patient of Dr. Tirado, presents with acute onset diffuse abdominal sp4 pain. No localization . Patient denied any nausea. History of breast cancer with bilateral mastectomy, history of hyperlipidemia and hypertensive disorder. . Historical: - Allergies: 08/12 21:44 Codeine; ha1 21:44 Darvon; ha1 21:44 Demerol; ha1 21:44 Hydrocodone-Acetaminophen; ha1 21:44 meperidine; ha1 21:44 Propoxyphene; ha1 - PMHx: 21:44 breast cancer; Hyperlipidemia; Hypertensive disorder; ha1 - PSHx: 21:44 breast CA-bilat; ha1 - Immunization history:: Adult Immunizations up to date. - Infectious Disease History:: Denies. - Social history:: Smoking status: Patient denies any tobacco usage or history of. - Family history:: not pertinent. - Hospitalizations: : No recent hospitalization is reported. ROS: 08/13 05:32 Constitutional: Negative for fever, chills, and weight loss, positive for diffuse sp4 abdominal pain All other systems are negative, Exam: 05:32 Constitutional: This is a well developed, well nourished patient who is awake, alert, sp4 and in no acute distress. Head/Face: Normocephalic, atraumatic. Eyes: Pupils equal round and reactive to light, extra-ocular motions intact. Lids and lashes normal. Conjunctiva and sclera are not injected. Cornea within normal limits. Periorbital areas with no swelling, redness, or edema. ENT: Nares patent. No nasal discharge, no septal abnormalities noted. Tympanic membranes are normal and external auditory canals are clear. Oropharynx with no redness, swelling, or masses, exudates, or evidence of obstruction, uvula midline. Mucous membranes moist. Neck: Trachea midline, no thyromegaly or masses palpated, and no cervical lymphadenopathy. Supple, full range of motion without nuchal rigidity, or vertebral point tenderness. Chest/axilla: Normal chest wall appearance and motion. Nontender with no deformity. No lesions are appreciated. Positive signs of bilateral mastectomy Cardiovascular: Regular rate and rhythm with a normal S1 and S2. No gallops, murmurs, or rubs. Normal PMI, no JVD. No pulse deficits. Respiratory: Lungs have equal breath sounds bilaterally, clear to auscultation and percussion. No rales, rhonchi or wheezes noted. No increased work of breathing, no retractions or nasal flaring. Abdomen/GI: Soft, with normal bowel sounds. No distension or tympany. No guarding or rebound. No evidence of tenderness throughout. Back: No spinal tenderness. No costovertebral tenderness. Skin: Warm, dry with normal turgor. Normal color with no rashes, no lesions, and no evidence of cellulitis. MS/ Extremity: Pulses equal, no cyanosis. Neurovascular intact. Full, normal range of motion. Neuro: Awake and alert, GCS 15, oriented to person, place, time, and situation. Cranial nerves II-XII grossly intact. Motor strength 5/5 in all extremities. Sensory grossly intact. Psych: Awake, alert, with orientation to person, place and time. Behavior, mood, and affect are within normal limits 05:32 ECG was reviewed by the Attending Physician. Normal sinus rhythm at the rate of 88, EKG sp4 time 2228. First-degree AV block Vital Signs: 08/12 21:46 BP 161 / 104; Pulse 80; Resp 18 S; Temp 98.4(O); Pulse Ox 100% on R/A; Pain 0/10; rv1 21:58 Weight 81.19 kg; Height 5 ft. 5 in. ; ha1 22:56 BP 113 / 52; Pulse 89; Resp 20; Pulse Ox 96% on R/A; tm6 08/13 00:02 BP 96 / 58; Pulse 94; Resp 18; Pulse Ox 94% on R/A; tm6 00:33 BP 108 / 64; Pulse 96; Resp 17 S; Pulse Ox 95% on R/A; ha1 02:00 BP 108 / 48; Pulse 100; Resp 18 S; Pulse Ox 94% on R/A; ha1 03:04 BP 108 / 48; Pulse 108; Resp 24; Pulse Ox 97% on 2 lpm NC; tm6 04:11 BP 114 / 41; Pulse 104; tm6 05:45 Pulse 93; Resp 25; Pulse Ox 98% on 2 lpm NC; Pain 0/10; tm6 05:46 BP 100 / 45; tm6 06:43 BP 100 / 45; Pulse 89; Resp 19; Pulse Ox 98% on R/A; Pain 0/10; tm6 11 21:58 Body Mass Index 29.79 (81.19 kg, 165.1 cm) ha1 08/12 21:46 Pain Scale: Adult rv1 05:45 Pain Scale: Adult tm6 06:43 Pain Scale: Adult tm6 [place] Coma Score: 05:32 Eye Response: spontaneous(4). Motor Response: obeys commands(6). Verbal Response: sp4 oriented(5). Total: 15. MDM: 08/12 21:49 Patient medically screened. sp4 08/13 05:32 Differential Diagnosis altered mental status, sepsis, flu, Diverticulitis, colitis, sp4 pancreatitis, cholecystitis. Data reviewed: vital signs, nurses notes, EMS record, old medical records, lab test result(s), EKG, radiologic studies, CT scan, ultrasound. Consideration of Admission/Observation Patient was admitted/placed on observation. Escalation of care including admission/observation considered. Management of patient was discussed with the following: Hospitalist: Patient discussed with Dr. Laughlin at [facility] who accepted patient. . Laboratory Inspector: Patient discussed with general Surgeon Dr. Car who recommended transfer for ERCP. . ED course: Patient was accepted at [facility] patient has elevated WBC 16.9 with neutrophilic predominance, significant elevation of liver enzyme AST ALT and alk phos are all elevated with total bili 1.8. Ultrasound revealed cholelithiasis without cholecystitis. Nondilated common bile duct. . ED course: CT has revealed findings suggestive of mild fluid overload, small left-sided Carace and right sided pleural effusion. Mild periportal edema. Trace pericholecystic fluid and right lower quadrant free fluid. Cholelithiasis with no gallbladder wall thickening. Possible small enhancing mass over the right kidney consider further evaluation with renal protocol MRI . Unchanged small lesion at the inferior hepatic lobe likely benign hemangioma. . ED course: At this time patient warrants transfer for further evaluation. Our general surgeon states patient requires ERCP and there is no fireproof door maker available at this time. She was accepted to [facility] for management and GI consult also General Surgery consult . 08/12 21:48 Order name: CBC with Diff; Complete Time: 00:38 sp4 08/12 21:48 Order name: CMP; Complete Time: 00:38 sp4 08/12 21:48 Order name: Lipase; Complete Time: 00:38 sp4 08/12 21:48 Order name: Urinalysis w/ reflexes; Complete Time: 00:38 sp4 08/12 22:13 Order name: Manual Differential; Complete Time: 00:38 EDMS 08/12 22:39 Order name: Urine Culture [facility] 08/12 21:48 Order name: Abdomen Limited US; Complete Time: 00:38 sp4 08/12 21:48 Order name: CT Abd/Pelvis - IV Contrast Only [facility] 08/12 21:49 Order name: EKG; Complete Time: 21:49 sp4 08/12 21:48 Order name: IV Saline Lock; Complete Time: 22:12 sp4 08/12 21:48 Order name: Labs collected and sent; Complete Time: 22:12 sp4 08/12 21:48 Order name: NPO; Complete Time: 22:37 sp4 08/12 21:49 Order name: EKG - Nurse/Tech; Complete Time: 22:31 sp4 EC:32 Rate is 88 beats/min. Rhythm is regular, Normal Sinus Rhythm. QRS [place] is Normal. [place] sp4 interval is prolonged. QRS interval is normal. QT interval is normal. No Q waves. T waves are Normal. No ST changes noted. Clinical impression: No evidence of ischemia. Interpreted by me. Reviewed by me. Administered Medications: 08/12 22:37 Drug: Famotidine IVP 20 mg IVP once; dilute with 10 mL 0.9% NaCl; give over 2 minutes ha1 Route: IVP; Site: right hand; 22:37 Drug: Ondansetron IVP 4 mg IVP once; over 2 minutes Route: IVP; Site: right hand; ha1 22:38 Drug: NS 0.9% IV 1000 ml IV at 75 ml/hr continuous Route: IV; Rate: 75 ml/hr; Site: ha1 right hand; 08/13 01:22 Drug: Piperacillin-Tazobactam IVPB 3.375 grams IVPB once over 60 mins; (mix in NS 100 ha1 mL) Route: IVPB; Infused Over: 60 mins; Site: right hand; 05:56 Follow up: IV Status: Completed infusion tm6 03:00 Drug: NS 0.9% IV 500 ml IV at bolus once Route: IV; Rate: bolus; Site: right hand; tm6 05:56 Follow up: Response: No adverse reaction; IV Status: Completed infusion; IV Intake: tm6 500ml 05:55 Not Given (Patient Refused): morphineor iv 4 mg IVP once over 4 mins tm6 Disposition Summary: 08/14/23 01:16 Transfer Ordered Notes: Transfer Location: [facility] sp4 Reason: Higher level of care sp4 Condition: Stable sp4 Problem: new sp4 Symptoms: have improved sp4 [facility] tm6 Diagnosis - Nonspecific reactive hepatitis sp4 - Cholelithiasis with acute cholecystitis, transaminitis, acute hepatitis sp4 - Pericholecystic fluid, elevated liver enzymes sp4 Forms: - Medication Reconciliation Form sp4 - SBAR form sp4 Signatures: Dispatcher [employer] EDAbi iDallo RN RN 1 Rayray Stoner MD MD sp4 Beto Valentin RN RN tm6 Corrections: (The following items were deleted from the chart) 08/12 21:49 21:49 CBC+H.LAB.BRZ ordered. EDMS EDMS 21:49 21:49 COMPREHENSIVE METABOLIC PANEL+C.LAB.BRZ ordered. EDMS EDMS 21:49 21:49 LIPASE+C.LAB.BRZ ordered. EDMS EDMS 21:49 21:49 Urinalysis+U.LAB.BRZ ordered. EDMS EDMS 21:56 21:44 PSHx: breast CA-bilat; ha1 ha1 08/13 05:40 01[facility]16 [facility] sp4 06:43 05:[address] hospitalist sp4 tm6
[2023-08-14] MEDS ORDERED: NA CHLORIDE 0.9% 500 ML ONE (03:02)
[2023-08-14 11:56] VITALS: TEMP 98.4
[2023-08-14 12:36] VITALS: BP 100/45; O2SAT 98
--- NOTE | 2023-08-14 13:37 | EKG ---
Test Date: 2023-08-13 Test Time: 22:28:48 Rv Servicer: NURIA MEASUREMENT RESULTS: Intervals: Rate: 88 UT: 268 QRSD: 86 QT: 352 QTc: 425 [place]: P: 63 UT: 268 QRS: 36 T: 43 INTERPRETIVE STATEMENTS: Sinus rhythm with 1st degree AV block Cannot rule out Anterior infarct, age undetermined Abnormal ECG Compared to ECG 08/10/2023 10:33:30 First degree AV block now present Myocardial infarct finding now present T-wave abnormality no longer present Prolonged QT interval no longer present Electronically Signed On 08-14-23 13:36:08 CDT by Andrea Villalta
--- NOTE | 2023-08-17 20:42 | RAD REPORT ---
EXAM DESCRIPTION: CT - Abdomen Pelvis W Contrast - 08/14/2023 6:42 am CLINICAL HISTORY: ABD PAIN. COMPARISON: CT abdomen/pelvis from February 24, 2022. Report only for an abdominal ultrasound from to day. TECHNIQUE: CT of the abdomen and pelvis was performed following intravenous administration of iodina ayah contrast. Oral contrast was not administered. Axial, coronal, and sagittal soft tissue window rec onstructions were created and sent to PACS. This exam was performed according to our departmental dose-optimization program, which includes autom ated exposure control, adjustment of the mA and/or kV according to patient size and/or use of iterati ve reconstruction technique. FINDINGS: Thoracic: Small left-sided and trace right sided pleural effusions. Mild left atrial enlar gement. Hepatobiliary: Inferior hepatic tip hypodense lesion measuring approximately 2 cm, unchanged from rohini or. The portal veins are patent. Cholelithiasis. No gallbladder wall thickening. Trace pericholecysti c fluid is suspected. Mild periportal edema. Mild intra and extrahepatic biliary ductal prominence, w ith the common bile duct measuring up to 0.9 cm in diameter. No calcified choledocholithiasis is visu alized. Pancreas: Unremarkable. Spleen: Unremarkable. Gastrointestinal: Frank-en-Y gastric bypass. No evidence of bowel obstruction or perienteric inflammat ion. The appendix is normal. Moderate left colonic diverticulosis. Small stool burden. Adrenals: Diffuse thickening of the left adrenal gland. No abnormality identified in the right adrena l gland. Renal: Unchanged possible small enhancing mass along the lateral right mid kidney measuring 1.6 cm, v ersus lobulated parenchyma. Adjacent simple cyst (for which no follow-up imaging is recommended). No hydronephrosis or urolithiasis. Bladder/Reproductive: Unremarkable appearance of the urinary bladder by CT technique. Vascular/Lymphatics: No lymphadenopathy identified by CT size criteria. Abdominal aorta is normal in caliber. Prominent mixed atherosclerosis. Musculoskeletal: No concerning osseous lesion identified. Demineralized appearance of the bones. Prom inent facet arthrosis in the lower lumbar spine. Benign hemangiomata in the L3 and L2 vertebral jose s. Fluid / peritoneum: Scant right lower quadrant free fluid. No free intraperitoneal air identified. IMPRESSION: 1. Findings suggestive of mild fluid overload, with small left-sided and trace right s ided pleural effusions, mild periportal edema, trace pericholecystic fluid, and scant right lower apolonia drant free fluid. 2. Cholelithiasis with no gallbladder wall thickening. 3. Possible small enhancing mass of the right kidney. Consider further evaluation with nonemergent renal protocol MRI or CT, if clinically appropriate based on patient's age. 4. Unchanged small lesion at the inferior right hepatic lobe, likely a benign hemangioma. Electronically signed by: Angely John MD 08/14/2023 12:40 AM CDT Due to temporary technical issues with the PACS/Fluency reporting system, reports are being signed by the in house radiologists without review as a courtesy to insure prompt reporting. The interpreting radiologist is fully responsible for the content of the report.
== END 2023-08-14 06:43 | disposition short-term general hospital (02) ==
LOC: ER 21:38
DX: K75.2 Nonspecific reactive hepatitis (principal); K80.00 Calculus of gallbladder with acute cholecystitis without obstruction; R74.01 Elevation of levels of liver transaminase levels; K82.8 Other specified diseases of gallbladder; I10 Essential (primary) hypertension; Z88.5 Allergy status to narcotic agent; Z88.8 Allergy status to other drugs, medicaments and biological substances
CPT/HCPCS: 96365; 93005; 87088; 85025; 81001; 87086; 36415; 83690; 80053; 74177; 76705; 96375; 99285; 96366; Q9967; J2543; J2405; J7040; J7030

== ENCOUNTER 2024-06-01 06:44 | Day surgery (SDC) | payer OTHER ==
[2024-06-01 07:48] LABS: PT Prothrombin Time 10.8 SECONDS (9.4-12.5); PTT, Activated Partial Thromb 28.8 SECONDS (24.3-36.9); Protime INR 1.03
[2024-06-01] MEDS ORDERED: FENTANYL CITR 100 MCG/2 ML ONE (07:50)
[2024-06-01] MEDS ORDERED: NALOXONE HCL 2 MG/2 ML VIAL ONE (07:50)
[2024-06-01] MEDS ORDERED: FLUMAZENIL 0.1 MG/ML (5 mL VIAL) IV ONE (07:50)
[2024-06-01] MEDS ORDERED: MIDAZOLAM HCL 2 MG/2 ML INJ ONE (07:50)
[2024-06-01] MEDS ORDERED: NA CHLORIDE 0.9% 1,000 ML ONE (07:57)
--- NOTE | 2024-06-01 08:58 | RAD REPORT ---
PROCEDURE: ULTRASOUND GUIDED BIOPSY Pre-procedure diagnosis: Indeterminant right liver mass Post-procedure diagnosis: Same as above. CLINICAL INDICATION: Indeterminate right liver mass COMPLICATIONS: No immediate complications. IMPRESSION: Percutaneous ultrasound-guided Core needle biopsy of right liver mass PROCEDURE DETAILS: Consent: Informed consent for the procedure including risks, benefits and alternatives was obtained a nd time-out was performed prior to the procedure. Preparation: The site was prepared and draped using all elements of maximal sterile barrier technique including sterile gloves, sterile gown, cap, mask, large sterile sheet, sterile ultrasound probe cover as needed, hand hygiene and cutaneous antisepsis with 2% chlorhexidine. Sedation: Moderate sedation (conscious sedation) Administered by: Nurse, or other independent traine d observer, with level of consciousness and vital signs continuously monitored. Total sedation administered: 1 mL Versed and 25 mcg Fentanyl. Total intra-service sedation time: 15 minutes. Biopsy: Local anesthesia was administered. Under ultrasound guidance, the 18-gauge core biopsy needle was advanced to the target and biopsy was performed. The biopsy needle was removed and a sterile dressing was applied. [id number]. Number of specimens: 3 On-site biopsy touch preparation: None. Additional sampling description: None. Preliminary assessment of sample adequacy: Not applicable. Tract embolization: None. Post-biopsy imaging findings: No immediate complications seen. Contrast used: None. Estimated blood loss: Less than 10 mL.
[2024-06-01 10:33] VITALS: BMI 25.4
[2024-06-01 12:21] VITALS: BP 138/55; TEMP 97.8; O2SAT 97
== END 2024-06-01 12:31 | disposition home or self-care (01) ==
LOC: DS 06:44
PROVIDERS: ATTEND Internal Medicine
DX: D18.03 Hemangioma of intra-abdominal structures (principal); K76.9 Liver disease, unspecified; R16.0 Hepatomegaly, not elsewhere classified; C50.912 Malignant neoplasm of unspecified site of left female breast; D50.8 Other iron deficiency anemias; M81.0 Age-related osteoporosis without current pathological fracture; Z71.3 Dietary counseling and surveillance
CPT/HCPCS: 36415; 47000; 85610; 85730; 88307; J2250; J2310; J3010; J7030